=== PATIENT | male | born 1940 | race Caucasian/White ===

== ENCOUNTER 2016-04-18 14:53 | Outpatient (CLI) | payer MEDICARE, OTHER | END 2016-04-18 14:54 | disposition home or self-care (01) | DX: E11.9 Type 2 diabetes mellitus without complications (principal); I50.9 Heart failure, unspecified; I25.810 Atherosclerosis of coronary artery bypass graft(s) without angina pectoris ==

== ENCOUNTER 2016-06-06 08:20 | Outpatient (CLI) | payer MEDICARE, OTHER | END 2016-06-06 08:21 | disposition home or self-care (01) | DX: I12.9 Hypertensive chronic kidney disease with stage 1 through stage 4 chronic kidney disease, or unspecified chronic kidney disease (principal); E11.319 Type 2 diabetes mellitus with unspecified diabetic retinopathy without macular edema; E78.2 Mixed hyperlipidemia; N18.9 Chronic kidney disease, unspecified; I25.10 Atherosclerotic heart disease of native coronary artery without angina pectoris; M79.673 Pain in unspecified foot ==

== ENCOUNTER 2016-09-02 16:30 | Outpatient (CLI) | payer MEDICARE, OTHER ==
[2016-09-02 13:23] LABS: CALCIUM 8.5 mg/dL (8.5-10.3); CREATININE 1.3 mg/dL (0.6-1.2); POTASSIUM 4.5 mmol/L (3.5-5.0)
[2016-09-02 14:00] LABS: HEMOGLOBIN A1C 0.67 g/dL
== END 2016-09-02 16:31 | disposition home or self-care (01) ==
LOC: LAB.WCP 16:30
PROVIDERS: ATTEND Family Medicine
DX: E11.319 Type 2 diabetes mellitus with unspecified diabetic retinopathy without macular edema (principal)
CPT/HCPCS: 36415; 80048; 83036

== ENCOUNTER 2016-12-04 08:34 | Outpatient (CLI) | payer MEDICARE, OTHER ==
[2016-12-04 13:22] LABS: ALBUMIN/GLOBULIN RATIO 1.2 (1.0-2.2); BILIRUBIN,TOTAL 0.4 mg/dL (0.2-1.0); BUN - BLOOD UREA NITROGEN 22 mg/dL (6-20); CALCIUM 9.2 mg/dL (8.5-10.3); CARBON DIOXIDE - CO2 24 mmol/L (21-32); CHLORIDE 108 mmol/L (101-111); CHOL/HDL RATIO 4.4 (<5.0); CHOLESTEROL 158 mg/dL; CREATININE 1.5 mg/dL (0.6-1.2); GFR - MDRD 45 (>89); GLUCOSE 107 mg/dL (70-100); HDL CHOLESTEROL 36 mg/dL; LDL/HDL RATIO 2.1 (<3.6); POTASSIUM 4.6 mmol/L (3.5-5.0); SODIUM 140 mmol/L (135-145); TRIGLYCERIDES 223 mg/dL; VLDL CHOLESTEROL 45 mg/dL
[2016-12-04 13:40] LABS: HEMOGLOBIN A1C 0.67 g/dL
== END 2016-12-04 08:35 | disposition home or self-care (01) ==
LOC: LAB.WCP 08:34
PROVIDERS: ATTEND Family Medicine
DX: I12.9 Hypertensive chronic kidney disease with stage 1 through stage 4 chronic kidney disease, or unspecified chronic kidney disease (principal); N18.9 Chronic kidney disease, unspecified; I25.10 Atherosclerotic heart disease of native coronary artery without angina pectoris; E11.319 Type 2 diabetes mellitus with unspecified diabetic retinopathy without macular edema
CPT/HCPCS: 36415; 80053; 80061; 83036

== ENCOUNTER 2017-03-04 15:12 | Outpatient (CLI) | payer MEDICARE, OTHER ==
[2017-03-04 12:47] LABS: CALCIUM 8.9 mg/dL (8.5-10.3); CREATININE 1.2 mg/dL (0.6-1.2)
[2017-03-04 13:12] LABS: HEMOGLOBIN A1C 0.7 g/dL
== END 2017-03-04 15:13 | disposition home or self-care (01) ==
LOC: LAB.WCP 15:12
PROVIDERS: ATTEND Family Medicine
DX: I25.10 Atherosclerotic heart disease of native coronary artery without angina pectoris (principal); E11.319 Type 2 diabetes mellitus with unspecified diabetic retinopathy without macular edema; I10 Essential (primary) hypertension; E78.2 Mixed hyperlipidemia
CPT/HCPCS: 36415; 80048; 83036

== ENCOUNTER 2017-06-08 07:26 | Outpatient (CLI) | payer MEDICARE, OTHER ==
[2017-06-08 13:29] LABS: HB2 TOTAL 13.6 g/dL; HEMOGLOBIN A1C 0.82 g/dL; HEMOGLOBIN A1C % 7.7 % (4.6-6.2)
[2017-06-08 13:34] LABS: ALBUMIN 3.9 g/dL (3.2-5.5); ALBUMIN/GLOBULIN RATIO 1.3 (1.0-2.2); ALKALINE PHOSPHATASE 22 IU/L (42-121); ALT ALANINE AMINOTRANSFERASE 24 IU/L (10-60); AST ASPARTATE AMINOTRANSFERASE 29 IU/L (10-42); BILIRUBIN,TOTAL 0.4 mg/dL (0.2-1.0); BUN - BLOOD UREA NITROGEN 29 mg/dL (6-20); CALCIUM 8.6 mg/dL (8.5-10.3); CARBON DIOXIDE - CO2 25 mmol/L (21-32); CHLORIDE 107 mmol/L (101-111); CHOL/HDL RATIO 3.8 (<5.0); CHOLESTEROL 117 mg/dL; CREATININE 1.4 mg/dL (0.6-1.2); GFR - MDRD 49 (>89); GLUCOSE 143 mg/dL (70-100); HDL CHOLESTEROL 31 mg/dL; LDL CHOLESTEROL,CALCULATED 56 mg/dL; LDL/HDL RATIO 1.8 (<3.6); SODIUM 138 mmol/L (135-145); TOTAL PROTEIN 6.8 g/dL (6.7-8.2); VLDL CHOLESTEROL 30 mg/dL
== END 2017-06-08 07:27 | disposition home or self-care (01) ==
LOC: LAB.WCP 07:26
PROVIDERS: ATTEND Family Medicine
DX: N18.9 Chronic kidney disease, unspecified (principal); E11.319 Type 2 diabetes mellitus with unspecified diabetic retinopathy without macular edema; Z12.5 Encounter for screening for malignant neoplasm of prostate; I25.10 Atherosclerotic heart disease of native coronary artery without angina pectoris; I12.9 Hypertensive chronic kidney disease with stage 1 through stage 4 chronic kidney disease, or unspecified chronic kidney disease
CPT/HCPCS: 36415; 80053; 80061; 82043; 83036; G0103; 83721; 84153

== ENCOUNTER 2017-08-15 19:41 | Inpatient (IN) | payer MEDICARE, OTHER ==
[2017-08-15] MEDS ORDERED: SODIUM CHLORIDE 0.9% 1,000 ML IV ONE (19:57)
[2017-08-15] MEDS ORDERED: PANTOPRAZOLE 40 MG VIAL IVP STA (19:57)
--- NOTE | 2017-08-15 19:59 | ED Physician Documentation ---
PD HPI ABD PAIN - Stated complaint Stated Complaint: MALE /SWEATING - Chief complaint Chief Complaint: Cardiac - History obtained from History obtained from: Patient, Family () - History of Present Illness Timing - onset: Today (77-year-old gentleman with history of coronary disease status post remote three-vessel coronary bypass. He has no history of liver disease or ulcer disease. He had a single black bowel movement about a week ago. Over the last 2 nights he has felt full at night and had trouble sleeping because of it took a Tums. He noticed several episodes of dark and tarry stools with fatigue and dyspnea on exertion today. No hematemesis.) Review of Systems Ten Systems: 10 systems reviewed and negative Constitutional: reports: Fatigue. denies: Fever GI: reports: Nausea, Bloody / black stool. denies: Abdominal Pain, Vomiting, Constipation PD PAST MEDICAL HISTORY - Past Medical History Cardiovascular: Hypertension, Coronary artery disease Respiratory: None Endocrine/Autoimmune: Type 2 diabetes GI: None : None HEENT: None Psych: None Musculoskeletal: None - Present Medications Home Medications: Ambulatory Orders Medication Instructions Recorded Confirmed Aspirin [Aspir-Low] 1 tab ORAL DAILY 05/07/15 05/07/15 Finasteride 5 mg ORAL DAILY 05/07/15 05/07/15 Metoprolol Succinate [Toprol Xl] 50 mg PO BID 05/07/15 05/07/15 Tamsulosin [Flomax] 0.4 mg ORAL DAILY 05/07/15 05/07/15 glipiZIDE [Glucotrol] 0.25 mg ORAL BID 05/07/15 05/07/15 metFORMIN [Glucophage] 1 tab ORAL TID 05/07/15 05/07/15 Atorvastatin [Lipitor] 40 mg 08/15/17 Fenofibrate 160 mg PO 08/15/17 Gabapentin 300 mg PO 08/15/17 Losartan Potassium 100 mg PO 08/15/17 amLODIPine [Norvasc] 5 mg PO ONCE 08/15/17 08/15/17 - Allergies Allergies/Adverse Reactions: Allergies Allergy/AdvReac Type Severity Reaction Status Date / Time No Known Drug Allergies Allergy Verified 05/07/15 09:35 - Living Situation Living Situation: reports: With spouse/s.o. - Social History Smoking Status: Former smoker PD ED PE NORMAL - Vitals Vital signs reviewed: Yes - General General: Alert and oriented X 3, No acute distress - HEENT HEENT: PERRL, EOMI - Neck Neck: Supple, no meningeal sign, No bony TTP - Cardiac Cardiac: RRR, No murmur - Respiratory Respiratory: No respiratory distress, Clear bilaterally - Abdomen Abdomen: Normal bowel sounds, Soft, Non tender - Rectal Rectal: Other (Stool sample: melena and v guaiac positive, QC pass) - Back Back: No CVA TTP, No spinal TTP - Derm Derm: Normal color, Warm and dry - Extremities Extremities: No deformity, No edema, No calf tenderness / cord - Neuro Neuro: Alert and oriented X 3, Normal speech Results - Vitals Vitals: Vital Signs - 24 hr 08/15/17 08/15/17 19:45 20:21 Temperature 36.9 C Heart Rate 80 76 Respiratory 18 18 Rate Blood Pressure 132/36 H 126/43 L O2 Saturation 99 100 Oxygen O2 Source Room air - EKG (time done) 1954 Rate: Rate (enter#) (78) Rhythm: NSR [place]: Normal Intervals: Normal OK QRS: Normal Ischemia: Non specific changes (flat lateral t waves) Computer interpretation: Agree with computer - Labs Labs: Laboratory Tests 08/15/17 08/15/17 08/15/17 20:00 20:00 20:00 WBC 9.8 RBC 2.28 L Hgb 7.5 L Hct 23.3 L MCV 102.0 H MCH 32.9 H MCHC 32.3 RDW 14.1 Plt Count 287 MPV 8.3 Neut # 6.4 Lymph # 2.6 [place] # 0.8 Eos # 0.0 Baso # 0.0 Absolute Nucleated RBC 0.00 Nucleated RBC % 0.0 PT 13.8 H INR 1.2 Sodium 137 Potassium 5.1 H Chloride 107 Carbon Dioxide 18 L Anion Gap 12.0 BUN 86 H* Creatinine 1.8 H Estimated GFR (MDRD) 37 L Glucose 343 H Calcium 9.4 Total Bilirubin 0.6 AST 18 ALT 17 Alkaline Phosphatase 18 L Troponin I Total Protein 5.8 L Albumin 3.4 Globulin 2.4 Albumin/Globulin Ratio 1.4 Lipase 27 08/15/17 20:00 WBC RBC Hgb Hct MCV MCH MCHC RDW Plt Count MPV Neut # Lymph # [place] # Eos # Baso # Absolute Nucleated RBC Nucleated RBC % PT INR Sodium Potassium Chloride Carbon Dioxide Anion Gap BUN Creatinine Estimated GFR (MDRD) Glucose Calcium Total Bilirubin AST ALT Alkaline Phosphatase Troponin I < 0.04 Total Protein Albumin Globulin Albumin/Globulin Ratio Lipase PD MEDICAL DECISION MAKING - ED course ED course: 77-year-old gentleman presents with signs and symptoms of an upper GI bleed, his hemodynamics are reassuring although he does have a modestly low diastolic. IVs were placed and blood was readied. He was given IV Protonix. His labs do not suggest any level of cirrhosis but he does have a hemoglobin of 7.5, last year it was 12.9. His BUN is high consistent with hemolysis in the GI tract. I spoke with Dr. Bobby Acevedo, the on-call surgeon for potential upper endoscopy 8:30 PM and spoke with the hospitalist, Dr. Hopkins for admission at 8: 34 PM. Given the low diastolic, evidence of active bleeding, and history of coronary disease, it does seem reasonable to transfuse him despite his hemoglobin not yet being lower than 7. Departure - Departure Disposition: 66 [facility] DC/Xfer Clinical Impression: Upper gastrointestinal bleeding, Anemia due to acute blood loss Condition: Serious
[2017-08-15 20:04] LABS: BASOPHILS % (AUTO) 0.3 %; EOSINOPHILS % (AUTO) 0.1 %; HGB - HEMOGLOBIN 7.5 g/dL (14.0-18.0); LYMPHOCYTES # (AUTO) 2.6 10^3/uL (1.5-3.5); LYMPHOCYTES % (AUTO) 26.2 %; MEAN CORPUSCULAR HEMOGLOBIN 32.9 pg (27.0-31.0); MEAN CORPUSCULAR HGB CONC 32.3 g/dL (32.0-36.0); MEAN PLATELET VOLUME 8.3 fL (7.4-11.4); MONOCYTES # (AUTO) 0.8 10^3/uL (0.0-1.0); MONOCYTES % (AUTO) 8.1 %; NEUTROPHILS # (AUTO) 6.4 10^3/uL (1.5-6.6); NEUTROPHILS % (AUTO) 65.3 %; PLT - PLATELET COUNT 287 10^3/uL (130-450); RED BLOOD COUNT 2.28 10^6/uL (4.70-6.10); RED CELL DISTRIBUTION WIDTH 14.1 % (12.0-15.0); WHITE BLOOD COUNT 9.8 x10^3/uL (4.8-10.8)
[2017-08-15 20:11] LABS: INR 1.2 (0.8-1.2); PT - PROTHROMBIN TIME 13.8 secs (9.9-12.6)
[2017-08-15 20:19] LABS: ALBUMIN 3.4 g/dL (3.2-5.5); ALBUMIN/GLOBULIN RATIO 1.4 (1.0-2.2); BILIRUBIN,TOTAL 0.6 mg/dL (0.2-1.0); CALCIUM 9.4 mg/dL (8.5-10.3); CREATININE 1.8 mg/dL (0.6-1.2); TOTAL PROTEIN 5.8 g/dL (6.7-8.2)
[2017-08-15] MEDS ORDERED: INSULIN REGULAR HUMAN 100 UNIT/1 ML 10 ML MDV SUBQ STA (20:40)
[2017-08-15] MEDS ORDERED: ACETAMINOPHEN 325 MG TABLET PO PRN (20:59)
[2017-08-15] MEDS ORDERED: ZOLPIDEM 5 MG TABLET PO PRN (20:59)
[2017-08-15] MEDS ORDERED: SODIUM CHLORIDE FLUSH 0.9% 10 ML SYRINGE IVP PRN (20:59)
[2017-08-15] MEDS ORDERED: ONDANSETRON 4 MG/2 ML VIAL IVP PRN (20:59)
[2017-08-15] MEDS ORDERED: MORPHINE 2 MG/ML SYRINGE IVP PRN (20:59)
[2017-08-15] MEDS ORDERED: LACTATED RINGERS 1,000 ML IV SCH (21:00)
[2017-08-15] MEDS ORDERED: LORazepam 2 MG/ML VIAL IVP PRN (21:12)
[2017-08-15] MEDS: PANTOPRAZOLE 80 MG in SODIUM CHLORIDE 0.9% 100ML 100 ML IV SCH (22:10)
--- NOTE | 2017-08-15 22:23 | HISTORY & PHYSICAL EXAMINATION ---
DATE OF SERVICE: 08/15/2017 Physician: Mayra Hopkins MD CHIEF COMPLAINT: Melena. HISTORY OF PRESENT ILLNESS: Patient is a 77-year-old white male with multiple past medical problems who presented to [facility] ER complaining of five days history of feeling unwell and having black melenotic stools. He reported that at first he had black melena like stool about five days ago, that was one episode which resolved. Subsequently in the past few days, he felt full and had indigestion-like feeling, took some Tums, which somewhat helped. He could not sleep because he felt abdominal discomfort. At rest he felt reasonably well ; however, when he ambulated or tried to be active, he broke out in cold sweats and became short of breath. He denied chest pain. He did not report nausea or vomiting. Denied change in his weight. His stools were black, tarry, bloody and smelly. He does not have history of gastrointestinal bleed in the past. He underwent colonoscopy several times in the past with no pathology found. He reports having chronic diarrhea, which has been unchanged during the past several years. The patient also reports having pain of his right hip, right knee and right shoulder, also pain of his left ankle, likely has osteoarthritis and occasionally takes Tylenol. He takes Aleve or Advil three times a week, usually two tablets per day. He also takes aspirin for history of coronary artery disease. He reports drinking alcohol every day. He drinks 2 ounces of whiskey per day. Denies having withdrawal symptoms when he does not drink. Upon presentation to the ER, the patient was hemodynamically stable with heart rate of 76. However, it should be noted that he takes beta tyler. His blood pressure was 120/50. Laboratory showed BUN of 86, creatinine 1.8, notably creatinine baseline is around 1.3, potassium was 5.1, hemoglobin was 7.5, last hemoglobin in our system was 12.9, platelet count was normal. INR was normal. ER physician ordered 2 units of packed red blood cells. He discussed the case with the covering surgeon, Dr. Acevedo, who will see the patient and is planning endoscopy. REVIEW OF SYSTEMS: Please see pertinent positives listed above at history of present illness. The patient did not report additional complaints on the 12-point review. CODE STATUS: FULL CODE. FAMILY HISTORY: Positive for colitis in the mother. SOCIAL HISTORY: The patient is fully functional. He still drives. He does not smoke. He drinks 2 ounces of whiskey per day. PRIMARY CARE PHYSICIAN: Jameson Centeno MD. PAST MEDICAL HISTORY 1. Hypertension. 2. Dyslipidemia. 3. Insulin-dependent diabetes. 4. Coronary artery bypass graft in 2001, seen a automotive parts counter assistant last year and was found stable with coronary artery disease. 5. Chronic renal insufficiency. 6. Benign prostatic hypertrophy. 7. Osteoarthritis. OUTPATIENT MEDICATIONS Not yet reconciled. Per previous records, the patient was on: 1. Norvasc. 2. Glipizide. 3. Insulin. 4. Toprol. 5. Losartan. 6. Gabapentin. 7. Fenofibrate. 8. Lipitor. 9. Metformin. 10. Flomax. 11. Finasteride. 12. Aspirin. 13. He also took Aleve, Advil, and Tylenol p.r.n. ER workup reviewed per electronic medical record. PHYSICAL EXAMINATION VITAL SIGNS: Please see listed above at history of present illness. In addition, respiratory rate was 20, oxygen saturation 99% on room air, temperature maximum of 37.2 Celsius. GENERAL: The patient is a well-developed male who was not in distress. SKIN: Pallor. No jaundice. CARDIOVASCULAR: S1, S2. Regular rate and rhythm. I could not hear a pathologic murmur. RESPIRATORY: Clear to auscultation without wheezes or crackles. ABDOMEN: Distended abdomen, mostly tympanic on percussion. No shifting dullness. I could not palpate organomegaly. There was no tenderness, no guarding and no rebound. LYMPH: No lymphedema. MUSCULOSKELETAL: Thin extremities and larger abdomen. NEUROLOGIC: Alert, oriented, nonfocal. PSYCHIATRIC: Cooperative. Oral mucosa dry. ASSESSMENT AND PLAN/ACTIVE ISSUES/DIAGNOSES 1. Subacute/acute gastrointestinal bleed with melena, most likely upper gastrointestinal bleed. Risk factors include alcohol use, which could cause alcoholic gastritis, in addition nonsteroidal anti-inflammatory and aspirin use, which could be a risk factor for gastric ulcer. 2. Acute blood loss anemia. Hemoglobin dropping from the range of 12 to 7. 3. History of coronary artery disease. No symptoms of angina. 4. Renal failure, acute on chronic. 5. Abnormal BUN and creatinine ratio/blood in the gut. 6. Hyperkalemia, mild in the setting of renal failure, blood in the gut and gastrointestinal bleed. 7. Insulin-dependent diabetes, hyperglycemia on admission with blood glucose above 300. 8. History of alcohol use. No history of withdrawal. 9. Hemodynamically stable, although it should be noted that the heart rate is falsely normal as the patient takes beta tyler which masks tachycardia in the setting of gastrointestinal bleed. PLAN AND ORDERS 1. Patient is getting admitted to the intensive care unit, he is monitored on telemetry, received initially 1 unit packed red blood cell transfusion. We will recheck laboratories in the morning. We will continue beta tyler to avoid cardiac complication/cardiac ischemia and beta tyler withdrawal. 2. Surgeon, Dr. Acevedo, is planning endoscopy. 3. Protonix was started, we will continue Protonix drip. 4. Deep venous thrombosis prophylaxis with Venodyne boots. We will avoid heparin products in the setting of gastrointestinal bleed. 5. Insulin sliding scale for diabetes and hyperglycemia. 6. For history of alcohol use, I ordered small dose p.r.n. Ativan if it will be needed, then further plan regarding CIWA scoring could be reevaluated. 7. IV hydration. Time spent in the care of this patient was 60 minutes. ATTESTATION: I certify that the reasonable expectation for this patient is to stay hospitalized at least for 48 hours; therefore he is getting admitted as inpatient. I expect, however, that he gets discharged or transferred to another facility within 96 hours. TD: 08/15/2017 22:22 MARITZA
[2017-08-16] MEDS: INSULIN REGULAR HUMAN 100 UNIT/1 ML 10 ML MDV SUBQ SCH ×2 (00:22→06:08)
[2017-08-16] MEDS: SODIUM CHLORIDE FLUSH 0.9% 10 ML SYRINGE IVP SCH ×3 (00:23→14:19)
[2017-08-16 06:47] LABS: BASOPHILS % (AUTO) 0.6 %; EOSINOPHILS # (AUTO) 0.1 10^3/uL (0.0-0.7); EOSINOPHILS % (AUTO) 1.4 %; HGB - HEMOGLOBIN 7.6 g/dL (14.0-18.0); LYMPHOCYTES # (AUTO) 1.9 10^3/uL (1.5-3.5); LYMPHOCYTES % (AUTO) 25.1 %; MEAN CORPUSCULAR HEMOGLOBIN 31.6 pg (27.0-31.0); MEAN CORPUSCULAR HGB CONC 32.5 g/dL (32.0-36.0); MEAN CORPUSCULAR VOLUME 97.3 fL (80.0-94.0); MEAN PLATELET VOLUME 8.5 fL (7.4-11.4); MONOCYTES # (AUTO) 0.7 10^3/uL (0.0-1.0); MONOCYTES % (AUTO) 9.7 %; NEUTROPHILS # (AUTO) 4.7 10^3/uL (1.5-6.6); NEUTROPHILS % (AUTO) 63.2 %; PLT - PLATELET COUNT 218 10^3/uL (130-450); RED BLOOD COUNT 2.39 10^6/uL (4.70-6.10); RED CELL DISTRIBUTION WIDTH 16.2 % (12.0-15.0); WHITE BLOOD COUNT 7.4 x10^3/uL (4.8-10.8)
[2017-08-16] MEDS: PANTOPRAZOLE 80 MG in SODIUM CHLORIDE 0.9% 100ML 100 ML IV SCH (06:49)
[2017-08-16 06:57] LABS: CALCIUM 8.8 mg/dL (8.5-10.3); CREATININE 1.6 mg/dL (0.6-1.2)
[2017-08-16] MEDS ORDERED: METOPROLOL TARTRATE 50 MG TABLET PO SCH ×2 (09:00→21:00)
[2017-08-16] MEDS ORDERED: GABAPENTIN 300 MG CAPSULE PO SCH (09:00)
[2017-08-16] MEDS ORDERED: FUROSEMIDE 40 MG/4 ML VIAL IVP ONE (10:00)
[2017-08-16] MEDS ORDERED: LIDO GARGLE 30 ML BOTTLE TOP ONE (10:05)
[2017-08-16] MEDS ORDERED: LIDO GARGLE 30 ML BOTTLE ONE (10:11)
[2017-08-16] MEDS ORDERED: MIDAZOLAM 2 MG/2 ML VIAL IVP ONE (10:15)
[2017-08-16] MEDS ORDERED: PROPOFOL 200 MG/20 ML VIAL IVP ONE (10:15)
[2017-08-16] MEDS ORDERED: LACTATED RINGERS 1,000 ML IV ONE ×2 (10:22)
[2017-08-16] MEDS ORDERED: SODIUM CHLORIDE FLUSH 0.9% 10 ML SYRINGE ONE (10:52)
[2017-08-16] MEDS ORDERED: SUCRALFATE 1 GM/10 ML UDC PO SCH ×2 (11:00→16:00)
[2017-08-16] MEDS: FERROUS SULFATE 325 MG TABLET PO SCH ×2 (11:43→16:57)
[2017-08-16] MEDS: INSULIN ASPART 300 UNIT/3 ML PEN SUBQ SCH ×2 (11:44→17:06)
--- NOTE | 2017-08-16 12:10 | XRAY Report ---
EXAM: CHEST RADIOGRAPHY EXAM DATE: 08/16/2017 11:26 AM. CLINICAL HISTORY: SOB. COMPARISON: None. TECHNIQUE: 1 view. FINDINGS: Lungs/Pleura: No focal opacities evident. No pleural effusion. No pneumothorax. There may be a small calcified granuloma at the left lower lung. Mediastinum: Within exam limitations, the cardiomediastinal contour is normal. Other: Sternal wires. Broken uppermost sternal wire with mildly displaced fragment. IMPRESSION: No convincing acute cardiopulmonary abnormality. Other findings as noted above. [facility] Referring Provider Line: [phone] SITE ID: [id number]
--- NOTE | 2017-08-16 12:22 | PROVIDER PROGRESS NOTE ---
Assessment/Plan - Problem List (1) Anemia due to acute blood loss Assessment/Plan: Ordered to get 2 U PRBCs. Will recheck H/H after transfusion and in am. Iron po replacement already started. (2) Duodenal ulcer Assessment/Plan: EGD showed a non-bleeding duodenal ulcer, likely from ASA and NSAIDs vs EtOH (2- 4 shots/day) Will start PPI, Sucralfate. Will decrease ASA 325 mg to enteric coated ASA 81 mg. (3) IDDM (insulin dependent diabetes mellitus) Assessment/Plan: Will resume DM diet and ss Insulin coverage. Monitor glu at POC. (4) CAD (coronary artery disease) Assessment/Plan: Stable, restart meds. (5) HTN (hypertension) Assessment/Plan: restart po meds for BP control. Monitor VS. (6) CKD (chronic kidney disease) stage 3, GFR 30-59 ml/min Assessment/Plan: Monitor BUN/creat while inpatient. Will obtain a CXR to assure no fluid overload. (7) Hyperkalemia Assessment/Plan: Resolved. - Current Meds Current Meds: Current Medications Generic Name Dose Route Start Last Admin Trade Name Freq PRN Reason Stop Dose Admin Ferrous Sulfate 325 mg 08/16/17 11:00 08/16/17 11:43 Feosol PO 325 mg BIDWM MISA Administration Gabapentin 300 mg 08/16/17 09:00 08/16/17 11:43 Neurontin PO 300 mg DAILY MISA Administration Insulin Aspart 1 - 5 unit 08/16/17 12:00 08/16/17 11:44 Novolog SUBQ 1 unit 0800,1200,1700,2100 MISA Administration Protocol Sodium Chloride 10 ml 08/16/17 01:00 08/16/17 12:03 Normal Saline Flush 0.9% IVP Not Given 0100,0900,1700 MISA Zolpidem Tartrate 5 mg 08/15/17 20:59 08/16/17 00:44 Ambien PO 5 mg QPM PRN Administration Insomnia - Lab Result Fish Bone Diagrams: 08/16/17 06:18 08/16/17 06:18 - Additional Planning My Orders: My Active Orders 08/16/17 10:46 Blood Glucose Checks - Eating [RC] 0800,1200,1700,2100 Initiate Hypoglycemia Protocol [RC] .protocol 08/16/17 12:00 Insulin Aspart [NovoLOG] 1 - 5 unit SUBQ 0800,1200,1700,2100 08/16/17 13:00 Pantoprazole [Protonix] 40 mg PO QDAC 08/16/17 16:00 Sucralfate [Carafate] 1 gm PO 0700,1100,1600,2200 08/16/17 17:00 HCT - HEMATOCRIT [HEME] Routine HGB - HEMOGLOBIN [HEME] Routine 08/16/17 21:00 Metoprolol Tartrate [Lopressor] 50 mg PO BID 08/16/17 Lunch DIET [Full Liquid Diet] [DIET] 08/17/17 09:00 Fenofibrate [Tricor] 144 mg PO DAILY Losartan [Cozaar] 100 mg PO DAILY Tamsulosin [Flomax] 0.4 mg PO DAILY amLODIPine [Norvasc] 10 mg PO DAILY 08/17/17 21:00 Atorvastatin [Lipitor] 40 mg PO QPM Subjective - Subjective Patient Reports: Resting Comfortably Nursing Reports: No Complaints, Other (Is NPO before EGD this am) Objective Vital Signs: Vital Signs - 24 hr 08/15/17 08/15/17 08/15/17 21:12 21:21 21:31 Temperature 37.2 C 36.9 C Heart Rate 79 80 80 Heart Rate [ Monitoring electrodes] Respiratory 20 23 21 Rate Blood Pressure 130/51 L 142/39 H 129/42 L Blood Pressure [Left Brachial artery] O2 Saturation 99 08/15/17 08/15/17 08/15/17 21:41 22:00 22:15 Temperature 36.8 C 36.5 C Heart Rate 81 Heart Rate [ 88 76 Monitoring electrodes] Respiratory 20 22 22 Rate Blood Pressure 141/44 H Blood Pressure 150/93 H 137/48 H [Left Brachial artery] O2 Saturation 100 99 08/15/17 08/16/17 08/16/17 23:00 00:00 00:24 Temperature 36.3 C L Heart Rate 80 Heart Rate [ 76 80 Monitoring electrodes] Respiratory 23 21 20 Rate Blood Pressure 142/52 H Blood Pressure 122/51 L 107/24 L [Left Brachial artery] O2 Saturation 99 96 08/16/17 08/16/17 08/16/17 01:00 02:00 03:00 Temperature Heart Rate Heart Rate [ 76 81 80 Monitoring electrodes] Respiratory 17 13 13 Rate Blood Pressure Blood Pressure 125/48 L 110/42 L 134/55 H [Left Brachial artery] O2 Saturation 97 96 100 08/16/17 08/16/17 08/16/17 03:33 04:00 05:00 Temperature 36.4 C L Heart Rate Heart Rate [ 75 70 Monitoring electrodes] Respiratory 19 22 Rate Blood Pressure Blood Pressure 98/74 113/81 H [Left Brachial artery] O2 Saturation 98 97 08/16/17 08/16/17 08/16/17 06:00 07:00 08:00 Temperature 36.6 C Heart Rate 79 Heart Rate [ 70 77 79 Monitoring electrodes] Respiratory 23 20 14 Rate Blood Pressure 121/48 L Blood Pressure 133/59 H 121/48 L 121/48 L [Left Brachial artery] O2 Saturation 99 97 100 08/16/17 08/16/17 08/16/17 08:31 09:00 10:52 Temperature 36.2 C L 36.9 C Heart Rate 72 79 Heart Rate [ 71 Monitoring electrodes] Respiratory 20 18 15 Rate Blood Pressure 128/47 L 123/48 L Blood Pressure 131/53 H [Left Brachial artery] O2 Saturation 99 08/16/17 11:00 Temperature 36.9 C Heart Rate Heart Rate [ 86 Monitoring electrodes] Respiratory 20 Rate Blood Pressure Blood Pressure 119/54 L [Left Brachial artery] O2 Saturation 99 Oxygen O2 Source Room air I&O (Last 24 Hrs): Intake and Output Totals x24h 08/14/17 08/15/17 08/16/17 23:59 23:59 23:59 Intake Total 1386.5 Output Total 200 1125 Balance -200 261.5 General: Alert, Oriented x3 HEENT: Mucous membr. moist/pink, Other (Appears pale) Neck: Supple, No JVD Neuro: Non Focal Cardiovascular: No murmurs Respiratory: No respiratory distress, Breath sounds nml Abdomen: Soft, No tenderness Extremities: No edema - Results Results: Laboratory Results WBC 7.4 x10^3/uL (4.8-10.8) 08/16/17 06:18 RBC 2.39 10^6/uL (4.70-6.10) L 08/16/17 06:18 Hgb 7.6 g/dL (14.0-18.0) L 08/16/17 06:18 Hct 23.3 % (42.0-52.0) L 08/16/17 06:18 MCV 97.3 fL (80.0-94.0) H 08/16/17 06:18 MCH 31.6 pg (27.0-31.0) H 08/16/17 06:18 MCHC 32.5 g/dL (32.0-36.0) 08/16/17 06:18 RDW 16.2 % (12.0-15.0) H 08/16/17 06:18 Plt Count 218 10^3/uL (130-450) 08/16/17 06:18 MPV 8.5 fL (7.4-11.4) 08/16/17 06:18 Neut # 4.7 10^3/uL (1.5-6.6) 08/16/17 06:18 Lymph # 1.9 10^3/uL (1.5-3.5) 08/16/17 06:18 [place] # 0.7 10^3/uL (0.0-1.0) 08/16/17 06:18 Eos # 0.1 10^3/uL (0.0-0.7) 08/16/17 06:18 Baso # 0.0 10^3/uL (0.0-0.1) 08/16/17 06:18 Absolute Nucleated RBC 0.00 x10^3/uL 08/16/17 06:18 Nucleated RBC % 0.0 /100WBC 08/16/17 06:18 PT 13.8 secs (9.9-12.6) H 08/15/17 20:00 INR 1.2 (0.8-1.2) 08/15/17 20:00 Sodium 141 mmol/L (135-145) 08/16/17 06:18 Potassium 4.0 mmol/L (3.5-5.0) 08/16/17 06:18 Chloride 114 mmol/L (101-111) H 08/16/17 06:18 Carbon Dioxide 21 mmol/L (21-32) 08/16/17 06:18 Anion Gap 6.0 (6-13) 08/16/17 06:18 BUN 72 mg/dL (6-20) H 08/16/17 06:18 Creatinine 1.6 mg/dL (0.6-1.2) H 08/16/17 06:18 Estimated GFR (MDRD) 42 (>89) L 08/16/17 06:18 Glucose 147 mg/dL (70-100) H 08/16/17 06:18 POC Whole Bld Glucose 146 mg/dL (70 - 100) H 08/16/17 11:26 Calcium 8.8 mg/dL (8.5-10.3) 08/16/17 06:18 Total Bilirubin 0.6 mg/dL (0.2-1.0) 08/15/17 20:00 AST 18 IU/L (10-42) 08/15/17 20:00 ALT 17 IU/L (10-60) 08/15/17 20:00 Alkaline Phosphatase 18 IU/L (42-121) L 08/15/17 20:00 Troponin I < 0.04 ng/mL (<0.49) 08/15/17 20:00 Total Protein 5.8 g/dL (6.7-8.2) L 08/15/17 20:00 Albumin 3.4 g/dL (3.2-5.5) 08/15/17 20:00 Globulin 2.4 g/dL (2.1-4.2) 08/15/17 20:00 Albumin/Globulin Ratio 1.4 (1.0-2.2) 08/15/17 20:00 Lipase 27 U/L (22-51) 08/15/17 20:00 Blood Type A POSITIVE 08/15/17 20:00 Antibody Screen NEGATIVE 08/15/17 20:00 Crossmatch IS Only See Detail 08/15/17 20:00 - Procedures Procedures: Procedures INSPECTION OF LOWER INTESTINAL TRACT, ENDO (05/07/15) ABX Reporting Has patient been on IV antibiotics over the past 48 hours?: No
[2017-08-16] MEDS ORDERED: PANTOPRAZOLE 40 MG TABLET PO SCH (13:00)
[2017-08-16] MEDS ORDERED: amLODIPine 5 MG TABLET PO SCH (16:14)
--- NOTE | 2017-08-16 18:45 | Discharge Plan ---
Discharge Plan Disposition: Home, Self Care Condition: Stable Prescriptions: Pantoprazole [Protonix] 40 mg PO DAILY #30 tablet Sucralfate [Carafate] 1 gm PO BID #600 ml Diet: Diabetic Activity Restrictions: Activity as Tolerated Shower Restrictions: No Driving Restrictions: No Instruction Topics: Gastric Duodenal Ulcer Ch Additional Instructions or Follow Up instructions: Resume all your pre-hospital medications EXCEPT STOP THE ALEVE AND ADVIL. DO NOT TAKE THE ASPIRIN TIL OKd TO RESUME IT by your doctor. Take the new prescriptions for your stomach for a month and check with your doctor if you need refills. SEE YOUR DOCTOR IN 1-2 WEEKS IN FOLLOW-UP OF THIS HOSPITALIZATION AND FOR BLOOD TESTS. No Smoking: If you smoke, Please STOP! Call for help. Follow-up with: Nehemias Centeno MD [Primary Care Provider] -
[2017-08-16 19:19] VITALS: BP 127/53
[2017-08-17] MEDS ORDERED: amLODIPine 5 MG TABLET PO SCH (09:00)
[2017-08-17] MEDS ORDERED: LOSARTAN 50 MG TABLET PO SCH (09:00)
[2017-08-17] MEDS ORDERED: TAMSULOSIN 0.4 MG CAPSULE PO SCH (09:00)
[2017-08-17] MEDS ORDERED: FENOFIBRATE 48 MG TABLET PO SCH (09:00)
[2017-08-17] MEDS ORDERED: ATORVASTATIN 40 MG TABLET PO SCH (21:00)
--- NOTE | 2017-08-18 11:29 | DISCHARGE SUMMARY ---
Physician: Jeaneth Cooper MD DATE OF ADMISSION: 08/15/2017 DATE OF DISCHARGE: 08/16/2017 HISTORY OF PRESENT ILLNESS: This is a 77-year-old white male with a history of hypertension, insulin-dependent diabetes, coronary bypass grafting, chronic renal insufficiency, BPH and osteoarthritis. The patient presented with history of feeling "unwell" and noticing 5 days of black melanotic stools. He tried taking Tums for some indigestion-like abdominal discomfort and then came to the emergency room because he felt diaphoretic, short of breath and weak. The patient was noted to have hemoglobin of 7.5, his baseline is approximately 12. Therefore, he was admitted for evaluation of anemia and likely upper gastrointestinal bleed. DISCHARGE DIAGNOSES: 1. Duodenal ulcer. The patient was kept n.p.o., had a consultation by general surgery and then underwent an EGD that showed a nonbleeding duodenal ulcer. The patient was started on PPIs and Sucralfate and advised to stop taking his frequent dosing of Aleve and Advil. The aspirin was also advised to be stopped at least until seen by his PCP and okayed for resumption of the aspirin. The patient was able to tolerate clear liquids and then solid food without any abdominal pain and was discharged home. 2. Anemia due to acute blood loss. The patient received 2 units of packed red blood cells and hemoglobin recheck was 11.0. He also had evaluation for desaturation before discharge, because of his shortness of breath. He did not desaturate below 97% with activity and was deemed stable for discharge. 3. Insulin-dependent diabetes mellitus. The patient was on a diabetic diet after n.p.o. status was reversed and on insulin coverage. He was discharged with unchanged diabetic management. 4. Coronary artery disease history. There were no complaints of angina, his medications were unchanged. 5. Hypertension. The patient was on his medications for blood pressure control , which are stable. 6. Chronic kidney disease. Patient had creatinine of 1.8 on admission, it was 1.6 on the day of discharge. 7. Hyperkalemia. On admission, potassium was 5.1, at discharge, it was 4.0. LABS AND IMAGING: Reviewed and summarized above. ALLERGIES: NONE. MEDICATIONS AT THE TIME OF DISCHARGE: 1. Amlodipine 10 mg daily. 2. Lipitor 40 mg every evening. 3. Fenofibrate 160 mg daily. 4. Finasteride 5 mg daily. 5. Gabapentin 300 mg daily. 6. Insulin Lantus as per his home protocol. 7. Losartan 100 mg daily. 8. Metformin 500 mg in the a.m., 1000 mg in the p.m. 8. Metoprolol tartrate 50 mg b.i.d. 9. Protonix 40 mg daily, new medication to take for at least a month. 10. Sucralfate 1 gram p.o. b.i.d., new medication to take for at least a month. 11. Flomax 0.4 mg daily. PHYSICAL EXAMINATION AT DISCHARGE: VITAL SIGNS: Stable. Blood pressure 127/53, heart rate 83, sinus rhythm, afebrile. Room air saturation 96%. HEENT: Unremarkable. No icterus. Oral mucosa moist. NECK: Without JVD or carotid bruits. CHEST: Clear. HEART: Sounds normal. ABDOMEN: Soft, nontender, normal bowel sounds. EXTREMITIES: No edema. NEUROLOGIC: Intact. FOLLOWUP: Recommended to see his PCP and/or freezer worker in 1-2 weeks for further management of his duodenal ulcer that had caused bleeding and significant anemia. The PCP or gstroenterologist should OK the resumption of daily aspirin. CODE STATUS: FULL CODE. Time required to complete this entire discharge including dictation, review of course and medications ordered: 60 minutes. TD: 08/17/2017 17:46 MTDD
--- NOTE | 2017-09-02 12:16 | CONSULTATION NOTE ---
DATE OF SERVICE: 08/16/2017 Physician: Bobby Acevedo MD REFERRING PROVIDER: Jonathan Rosado M.D. REASON FOR REFERRAL: Melena. HISTORY OF PRESENT ILLNESS: The patient is a 77-year-old male who presents with black stools. Initially, he had melena approximately 5 days ago. In the last 2 days, he has had an upset stomach and started to have further black stools. Because of this, he came to the emergency room to be evaluated. The patient's hemoglobin was 7.5 on admission and 7.6 overnight. He has remained hemodynamically stable since admission. The patient denies any history of ulcers, but as stated has been having upset stomach and used Tums. He does take nonsteroidals for his arthritis. He has had colonoscopies in the past, which have been normal and has had chronic diarrhea. PAST MEDICAL HISTORY: Hypertension, hyperlipidemia, diabetes, coronary artery disease status post bypass, chronic renal insufficiency, BPH and arthritis. MEDICATIONS 1. Norvasc. 2. Glipizide. 3. Insulin. 4. Toprol. 5. Losartan. 6. Gabapentin. 7. Fenofibrate. 8. Lipitor. 9. Metformin. 10. Flomax. 11. Finasteride. 12. Aspirin. 13. Nonsteroidals. FAMILY HISTORY: Mother had colitis. SOCIAL HISTORY: The patient has 2 drinks a day. Denies any smoking or drug use. The patient is . REVIEW OF SYSTEMS: Gastrointestinal: Upset stomach and melena. Musculoskeletal: Arthritis. A 12-point review of systems was obtained with pertinent positives discussed and all others being negative. PHYSICAL EXAMINATION VITAL SIGNS: Temperature is 37.2, heart rate of 86, blood pressure 123/48. GENERAL: The patient is lying in bed. He is cooperative and pleasant, appears to answer questions fully, in no distress at the current time. EYES: Nonicteric. NECK: No lymphadenopathy. HEART: Regular. LUNGS: Clear. BACK: Nontender. ABDOMEN: Soft, nontender. EXTREMITIES: No edema or cyanosis. NEUROLOGIC: The patient appears to be neurologically intact without any deficit. PSYCHOLOGICAL: The patient is coherent, cooperative, appears to answer questions fully. DIAGNOSTIC DATA: Hemoglobin of 7.6, creatinine of 1.6. Blood sugars from 293 down to 144. ASSESSMENT: Melena with anemia. This most likely is an upper gastrointestinal bleeding. He is on nonsteroidals and he most likely has gastritis versus peptic ulcer disease. I have recommended he undergo upper endoscopy with possible control of bleeding or biopsy. The risks and possible complication of the procedure have been explained to him. He accepts the risks and would like to proceed with the procedure. 2. Diabetes with him having elevated blood sugars. The hospitalist will be giving medications to control this. 3. Chronic renal insufficiency. 4. Hypertension, controlled with medication. PLAN 1. N.p.o. 2. Esophagogastroduodenoscopy with possible biopsy or control of bleeding. TD: 09/02/2017 10:53
== END 2017-08-16 19:56 | disposition home or self-care (01) | DRG 378 ==
LOC: ED 19:41 → ICU 20:59 → MS2 08-16 15:27
PROVIDERS: ADMIT Internal Medicine; ATTEND Internal Medicine
PROC: 30233N1 Transfusion of Nonautologous Red Blood Cells into Peripheral Vein, Percutaneous Approach (ICD-10-PCS; 2017-08-15)
PROC: 0DB68ZX Excision of Stomach, Via Natural or Artificial Opening Endoscopic, Diagnostic (ICD-10-PCS; 2017-08-16)
PROC: 0DB58ZX Excision of Esophagus, Via Natural or Artificial Opening Endoscopic, Diagnostic (ICD-10-PCS; 2017-08-16)
PROC: 0DB98ZX Excision of Duodenum, Via Natural or Artificial Opening Endoscopic, Diagnostic (ICD-10-PCS; principal; 2017-08-16 10:00)
DX: K92.1 Melena (principal); K26.4 Chronic or unspecified duodenal ulcer with hemorrhage; D62 Acute posthemorrhagic anemia; E11.9 Type 2 diabetes mellitus without complications; I10 Essential (primary) hypertension; N17.9 Acute kidney failure, unspecified; T39.315A Adverse effect of propionic acid derivatives, initial encounter; Z79.84 Long term (current) use of oral hypoglycemic drugs; Z87.891 Personal history of nicotine dependence; K52.9 Noninfective gastroenteritis and colitis, unspecified; I12.9 Hypertensive chronic kidney disease with stage 1 through stage 4 chronic kidney disease, or unspecified chronic kidney disease; E11.22 Type 2 diabetes mellitus with diabetic chronic kidney disease; N18.9 Chronic kidney disease, unspecified; E11.65 Type 2 diabetes mellitus with hyperglycemia; N40.0 Benign prostatic hyperplasia without lower urinary tract symptoms; M19.90 Unspecified osteoarthritis, unspecified site; E78.5 Hyperlipidemia, unspecified; I25.10 Atherosclerotic heart disease of native coronary artery without angina pectoris; E87.5 Hyperkalemia; Z79.4 Long term (current) use of insulin; Z95.1 Presence of aortocoronary bypass graft; Z79.899 Other long term (current) drug therapy; Z79.82 Long term (current) use of aspirin
CPT/HCPCS: 36415; 36430; 71045; 80048; 80053; 83690; 84484; 85014; 85018; 85025; 85610; 86850; 86900; 86901; 86920; 87081; 87150; 87338; 88305; 93005; 94761; 96361; 96374; 99284

== ENCOUNTER 2017-08-17 08:00 | Outpatient (CLI) | payer MEDICARE, OTHER | END 2017-08-17 23:59 | LOC: LAB 08:00 | PROVIDERS: ATTEND Surgery | DX: Z53.9 Procedure and treatment not carried out, unspecified reason (principal) | CPT/HCPCS: 87081 ==

== ENCOUNTER 2017-09-07 08:00 | Outpatient (CLI) | payer MEDICARE, OTHER ==
[2017-09-07 12:47] LABS: CALCIUM 8.3 mg/dL (8.5-10.3); CREATININE 1.3 mg/dL (0.6-1.2); HB2 TOTAL 11.8 g/dL; HEMOGLOBIN A1C 0.54 g/dL; HEMOGLOBIN A1C % 6.3 % (4.6-6.2)
[2017-09-07 12:56] LABS: BASOPHILS % (AUTO) 0.6 %; EOSINOPHILS # (AUTO) 0.1 10^3/uL (0.0-0.7); EOSINOPHILS % (AUTO) 2.7 %; HGB - HEMOGLOBIN 10.9 g/dL (14.0-18.0); LYMPHOCYTES # (AUTO) 0.9 10^3/uL (1.5-3.5); LYMPHOCYTES % (AUTO) 18.4 %; MEAN CORPUSCULAR HEMOGLOBIN 31.8 pg (27.0-31.0); MEAN CORPUSCULAR VOLUME 96.4 fL (80.0-94.0); MEAN PLATELET VOLUME 8.6 fL (7.4-11.4); MONOCYTES # (AUTO) 0.5 10^3/uL (0.0-1.0); MONOCYTES % (AUTO) 10.1 %; NEUTROPHILS # (AUTO) 3.3 10^3/uL (1.5-6.6); NEUTROPHILS % (AUTO) 68.2 %; PLT - PLATELET COUNT 224 10^3/uL (130-450); RED BLOOD COUNT 3.43 10^6/uL (4.70-6.10); RED CELL DISTRIBUTION WIDTH 18.3 % (12.0-15.0); WHITE BLOOD COUNT 4.9 x10^3/uL (4.8-10.8)
== END 2017-09-07 08:01 | disposition home or self-care (01) ==
LOC: LAB.WCP 08:00
PROVIDERS: ATTEND Family Medicine
DX: D64.9 Anemia, unspecified (principal); E11.319 Type 2 diabetes mellitus with unspecified diabetic retinopathy without macular edema; K26.9 Duodenal ulcer, unspecified as acute or chronic, without hemorrhage or perforation; N18.9 Chronic kidney disease, unspecified
CPT/HCPCS: 36415; 80048; 83036; 85025

== ENCOUNTER 2017-09-25 07:24 | Outpatient (CLI) | payer MEDICARE, OTHER ==
--- NOTE | 2017-09-26 08:44 | Ultrasound Report ---
Procedure Date: 09/25/2017 Accession Number: [id number] / [id number] Procedure: US - Ankle Brachial Index CPT Code: FULL RESULT: EXAM: BILATERAL ABIs EXAM DATE: 09/25/2017 08:12 AM. CLINICAL HISTORY: PVD WITH CLAUDICATION. COMPARISON: None. TECHNIQUE: Doppler ultrasound and pressure cuff use to assess arterial pressures at the arms and ankles. FINDINGS: Peak brachial pressure noted on the left side at 153 mmHg. Right: Posterior tibial artery pressure: 147 mmHg. ALONDRA = 0.96 Biphasic waveforms noted at the FITNESS DIRECTOR and DPA. Left: Posterior tibial artery pressure: 144 mmHg. ALONDRA = 0.94 FITNESS DIRECTOR has biphasic waveform. DPA has monophasic. IMPRESSION: Within normal range bilateral ABIs. [facility]
== END 2017-09-25 07:25 | disposition home or self-care (01) ==
LOC: DI 07:24
PROVIDERS: ATTEND Family Medicine
DX: I73.9 Peripheral vascular disease, unspecified (principal); M51.36 Other intervertebral disc degeneration, lumbar region; M47.896 Other spondylosis, lumbar region; M47.898 Other spondylosis, sacral and sacrococcygeal region; M43.16 Spondylolisthesis, lumbar region
CPT/HCPCS: 72110; 93922

== ENCOUNTER 2017-09-25 07:26 | Outpatient (CLI) | payer MEDICARE, OTHER ==
--- NOTE | 2017-09-28 08:49 | XRAY Report ---
Procedure Date: 09/25/2017 Accession Number: [id number] / [id number] Procedure: XR - Lumbar Spine Complete CPT Code: FULL RESULT: EXAM: Lumbar Spine Complete DATE: 09/25/2017 8:46 AM CLINICAL HISTORY: PVD with claudication, low back pain COMPARISON: MRI lumbar spine 02/03/2013 TECHNIQUE: 4 views. FINDINGS: Alignment: Grade 1 retrolisthesis of L2 with respect to L3 and L4 with respect to L5. Bones: Five zxg-axd-shomrbd lumbar vertebral bodies are present. No fractures or bone lesions. Disks: Equivocal narrowing L2-3 and L4-5. Facets: Multilevel scattered degenerative changes. Sacroiliac Joints: Mild degenerative change Soft Tissues: Vascular calcification IMPRESSION: Degenerative change lumbar spine similar to minimally progressed compared with 02/03/2013. [facility]
== END 2017-09-25 07:27 | disposition home or self-care (01) ==
LOC: DI 07:26
PROVIDERS: ATTEND Family Medicine
DX: M51.36 Other intervertebral disc degeneration, lumbar region (principal); M47.896 Other spondylosis, lumbar region; M47.898 Other spondylosis, sacral and sacrococcygeal region; M43.16 Spondylolisthesis, lumbar region
CPT/HCPCS: 72110

== ENCOUNTER 2017-10-29 14:17 | Outpatient (CLI) | payer MEDICARE, OTHER ==
--- NOTE | 2017-10-30 21:59 | MRI Report ---
Procedure Date: 10/29/2017 Accession Number: [id number] / [id number] Procedure: MRI - Lumbar Spine W/O CPT Code: FULL RESULT: EXAM: MRI LUMBAR SPINE WITHOUT CONTRAST. EXAM DATE: 10/29/2017 02:55 PM. CLINICAL HISTORY: Low back pain at multiple sites. COMPARISON: 02/03/2013. TECHNIQUE: Multiplanar, multisequence T1-weighted and fluid-sensitive sequences of the lumbar spine from T12 to S1 without contrast. Other: None. FINDINGS: Alignment: No significant change in alignment. Minimal L2 on L3 retrolisthesis. Minimal asymmetric leftward convex lumbar curve. Spinal Canal: The conus terminates at T12. Unremarkable appearance of the conus medullaris. Bone Marrow: Five rru-jeb-gngntla lumbar vertebral bodies are assumed. No focal marrow edema or vertebral body height loss. Disk Levels/Facets: Dorsal thecal sac impingement on the left at T10-T11 from prominent asymmetric posterior hypertrophic degenerative changes, likely including ligamentum flavum thickening. This is only seen sagittally. Central canal is mildly stenotic but the cord does not appear displaced and the foramina are patent. T12-L1: Unremarkable. L1-L2: Unremarkable. L2-L3: Stable degenerative disk disease and facet arthropathy. Circumferential disk bulge. Mild marginal spurring. Patent central canal. Asymmetric left larger than right intraforaminal and extraforaminal disk protrusion with osteophyte. Foraminal stenosis appears mild on the right and may be moderate on the left. L3-L4: Similar findings of moderate degenerative disk disease and moderate to marked facet arthropathy with ligamentum flavum thickening. Circumferential disk bulge. Additional intraforaminal and extraforaminal broad-based bilateral protrusions. Right intraforaminal annular fissure stable appearing moderate stenosis of the central canal foraminal stenosis appears mild on the left and moderate on the right, similar to prior. L4-L5: Mild degenerative disk disease and left facet arthropathy. Moderately prominent facet arthropathy on the right. Stable appearing mild broad-based bulge. Patent central canal. Stable appearing mild left and eufv-hu-jdcdswcq right foraminal stenosis. L5-S1: Stable degenerative changes. Patent central canal. Right greater than left facet arthropathy. No disk extrusion. Stable foraminal stenosis right greater than left. Musculature: Mild diffuse fatty atrophy. No acute edema. Other: None. IMPRESSION: 1. Dorsal thecal sac indentation on the left at T10-T11 by posterior element hypertrophic degenerative changes. 2. Multilevel lumbar degenerative changes are present as detailed above, no clear evidence for progression of degenerative changes or stenosis, most notable at L2-L3 through L4-L5. Comment: The following findings are so common in adults without low back pain that while we report their presence, they must be interpreted with caution and in the context of the clinical situation. (Reference Marlonk et al, Spine 2001) Prevalence of findings in patients without low back pain: Disk degeneration (any evidence): 92% Disk desiccation/T2 signal loss: 83% Disk height loss: 56% Disk bulge: 64% Disk protrusion: 32% Annular tear/high intensity zone: 38% [facility]
== END 2017-10-29 14:18 | disposition home or self-care (01) ==
LOC: DI 14:17
PROVIDERS: ATTEND Physical Medicine & Rehabilitation
DX: M54.5 Low back pain (principal); M51.36 Other intervertebral disc degeneration, lumbar region
CPT/HCPCS: 72148

== ENCOUNTER 2018-04-01 09:00 | Outpatient (CLI) | payer MEDICARE, OTHER ==
[2018-04-01 13:57] LABS: BASOPHILS % (AUTO) 0.4 %; EOSINOPHILS # (AUTO) 0.1 10^3/uL (0.0-0.7); EOSINOPHILS % (AUTO) 2.7 %; HGB - HEMOGLOBIN 11.7 g/dL (14.0-18.0); MEAN CORPUSCULAR HGB CONC 33.5 g/dL (32.0-36.0); MEAN CORPUSCULAR VOLUME 101.4 fL (80.0-94.0); MEAN PLATELET VOLUME 8.7 fL (7.4-11.4); MONOCYTES # (AUTO) 0.6 10^3/uL (0.0-1.0); MONOCYTES % (AUTO) 11.7 %; NEUTROPHILS # (AUTO) 3.2 10^3/uL (1.5-6.6); NEUTROPHILS % (AUTO) 65.2 %; PLT - PLATELET COUNT 231 10^3/uL (130-450); RED BLOOD COUNT 3.44 10^6/uL (4.70-6.10); RED CELL DISTRIBUTION WIDTH 13.6 % (12.0-15.0); WHITE BLOOD COUNT 4.9 x10^3/uL (4.8-10.8)
[2018-04-01 14:11] LABS: HEMOGLOBIN A1C 0.6 g/dL; HEMOGLOBIN A1C % 6.7 % (4.6-6.2)
[2018-04-01 14:30] LABS: ALBUMIN 3.9 g/dL (3.2-5.5); ALBUMIN/GLOBULIN RATIO 1.3 (1.0-2.2); ALKALINE PHOSPHATASE 23 IU/L (42-121); ALT ALANINE AMINOTRANSFERASE 22 IU/L (10-60); AST ASPARTATE AMINOTRANSFERASE 30 IU/L (10-42); BILIRUBIN,TOTAL 0.2 mg/dL (0.2-1.0); BUN - BLOOD UREA NITROGEN 27 mg/dL (6-20); CALCIUM 9.1 mg/dL (8.5-10.3); CARBON DIOXIDE - CO2 26 mmol/L (21-32); CHLORIDE 108 mmol/L (101-111); CHOL/HDL RATIO 4.4 (<5.0); CHOLESTEROL 145 mg/dL; CREATININE 1.4 mg/dL (0.6-1.2); GFR - MDRD 49 (>89); GLUCOSE 100 mg/dL (70-100); HDL CHOLESTEROL 33 mg/dL; LDL CHOLESTEROL,CALCULATED 78 mg/dL; LDL/HDL RATIO 2.4 (<3.6); SODIUM 143 mmol/L (135-145); TOTAL PROTEIN 6.9 g/dL (6.7-8.2); VLDL CHOLESTEROL 34 mg/dL
== END 2018-04-01 23:59 | disposition home or self-care (01) ==
LOC: LAB.WCP 09:00
PROVIDERS: ATTEND Family Medicine
DX: N18.9 Chronic kidney disease, unspecified (principal); E11.319 Type 2 diabetes mellitus with unspecified diabetic retinopathy without macular edema; I10 Essential (primary) hypertension; E78.2 Mixed hyperlipidemia
CPT/HCPCS: 36415; 80053; 80061; 83036; 83721; 85025

== ENCOUNTER 2018-05-25 09:07 | Outpatient (CLI) | payer MEDICARE, OTHER ==
--- NOTE | 2018-05-25 13:29 | MRI Report ---
Reason: PRIMARY OSTEOARTHRITIS,RIGHT SHOULDER,SHOULD PAIN Procedure Date: 05/25/2018 Accession Number: [id number] / [id number] Procedure: MRI - Shoulder RT W/O CPT Code: FULL RESULT: EXAM: RIGHT SHOULDER MRI WITHOUT CONTRAST EXAM DATE: 05/25/2018 10:01 AM. CLINICAL HISTORY: Right shoulder pain. Osteoarthritis. COMPARISON: SHOULDER 3 VIEW RT 03/26/2018 12:12 PM. TECHNIQUE: Multiplanar, multisequence T1-weighted and fluid-sensitive sequences of the shoulder without contrast. Other: None. FINDINGS: Acromioclavicular Region: The acromion is type II. Small effusion and mild osteoarthritis at the acromioclavicular joint. The coracoacromial and coracoclavicular ligaments are intact. No subacromial/subdeltoid bursal fluid. Glenohumeral Region: The humeral head is subluxed superiorly relative to the glenoid. No effusion or loose bodies. The articular cartilage is unremarkable. The glenohumeral ligaments and joint capsule are unremarkable. Bone Marrow: No fracture, marrow edema or bone lesions. Labrum: The labrum is unremarkable on this nonarthrographic study. Musculature/Rotator Cuff: There is an approximately 2.4 cm AP by 1.4 cm medial to lateral, extensive moderate grade partial thickness articular surface tear at the distal aspects of the supraspinatus and infraspinatus tendons. Teres minor and subscapularis tendons are unremarkable. No edema or fatty atrophy. Biceps Tendon: The long head of the biceps tendon and biceps tanika are intact. Other: The subcutaneous tissues are unremarkable. IMPRESSION: 1. Moderate grade partial thickness articular surface tear at the distal aspects of the supraspinatus and infraspinatus tendons. 2. Mild osteoarthritis at the acromioclavicular joint. [facility] MUSCULOSKELETAL RADIOLOGY SECTION
== END 2018-05-25 09:08 | disposition home or self-care (01) ==
LOC: DI 09:07
PROVIDERS: ATTEND Orthopaedic Surgery
DX: M19.011 Primary osteoarthritis, right shoulder (principal); M75.101 Unspecified rotator cuff tear or rupture of right shoulder, not specified as traumatic

== ENCOUNTER 2018-07-05 08:16 | Outpatient (CLI) | payer MEDICARE, OTHER ==
[2018-07-05 13:08] LABS: BASOPHILS # (AUTO) 0.1 10^3/uL (0.0-0.1); BASOPHILS % (AUTO) 1.1 %; EOSINOPHILS # (AUTO) 0.1 10^3/uL (0.0-0.7); HGB - HEMOGLOBIN 12.1 g/dL (14.0-18.0); LYMPHOCYTES # (AUTO) 1.3 10^3/uL (1.5-3.5); LYMPHOCYTES % (AUTO) 25.7 %; MEAN CORPUSCULAR HEMOGLOBIN 32.6 pg (27.0-31.0); MEAN CORPUSCULAR HGB CONC 33.3 g/dL (32.0-36.0); MEAN CORPUSCULAR VOLUME 97.9 fL (80.0-94.0); MEAN PLATELET VOLUME 8.7 fL (7.4-11.4); MONOCYTES # (AUTO) 0.4 10^3/uL (0.0-1.0); MONOCYTES % (AUTO) 8.2 %; NEUTROPHILS # (AUTO) 3.2 10^3/uL (1.5-6.6); PLT - PLATELET COUNT 208 10^3/uL (130-450); RED CELL DISTRIBUTION WIDTH 13.8 % (12.0-15.0); WHITE BLOOD COUNT 5.1 x10^3/uL (4.8-10.8)
[2018-07-05 13:23] LABS: ALBUMIN 3.8 g/dL (3.2-5.5); ALBUMIN/GLOBULIN RATIO 1.4 (1.0-2.2); ALKALINE PHOSPHATASE 26 IU/L (42-121); ALT ALANINE AMINOTRANSFERASE 25 IU/L (10-60); AST ASPARTATE AMINOTRANSFERASE 28 IU/L (10-42); BILIRUBIN,TOTAL 0.7 mg/dL (0.2-1.0); BUN - BLOOD UREA NITROGEN 20 mg/dL (6-20); CALCIUM 8.8 mg/dL (8.5-10.3); CARBON DIOXIDE - CO2 27 mmol/L (21-32); CHLORIDE 104 mmol/L (101-111); CHOL/HDL RATIO 3.9 (<5.0); CHOLESTEROL 138 mg/dL; CREATININE 1.4 mg/dL (0.6-1.2); GFR - MDRD 49 (>89); GLUCOSE 115 mg/dL (70-100); HDL CHOLESTEROL 35 mg/dL; LDL CHOLESTEROL,CALCULATED 64 mg/dL; LDL/HDL RATIO 1.8 (<3.6); SODIUM 138 mmol/L (135-145); TOTAL PROTEIN 6.5 g/dL (6.7-8.2); VLDL CHOLESTEROL 39 mg/dL
[2018-07-05 13:25] LABS: HB2 TOTAL 12.6 g/dL; HEMOGLOBIN A1C 0.78 g/dL; HEMOGLOBIN A1C % 7.8 % (4.6-6.2)
== END 2018-07-05 23:59 | disposition home or self-care (01) ==
LOC: LAB.WCP 08:16
PROVIDERS: ATTEND Family Medicine
DX: N18.9 Chronic kidney disease, unspecified (principal); E11.319 Type 2 diabetes mellitus with unspecified diabetic retinopathy without macular edema; E78.2 Mixed hyperlipidemia; D64.9 Anemia, unspecified
CPT/HCPCS: 36415; 80053; 80061; 83036; 83721; 85025

== ENCOUNTER 2018-07-10 10:51 | Emergency (ER) | payer MEDICARE, OTHER ==
[2018-07-10 10:58] VITALS: BP 140/46
--- NOTE | 2018-07-10 12:21 | ED Physician Documentation ---
PD HPI HEENT - Stated complaint Stated Complaint: R EAR PX - Chief complaint Chief Complaint: Heent - History obtained from History obtained from: Patient, Family - History of Present Illness Timing - onset: How many days ago (3) Timing - duration: Days (3) Timing - details: Gradual onset Pain level max: 6 Pain level now: 5 Location: Right ear Improves: Nothing Worsens: Temperatures (cold air) Associated symptoms: No: Fever, Congestion, Rhinorrhea, Trismus, Unable to swallow, Swollen nodes, Facial swelling, Headache, Cough Similar symptoms before: Has not had sx before Recently seen: Not recently seen - Additional information Additional information: 77-year-old male with right ear pain for the past 3 days. No fevers. No drainage. No rhinorrhea. Mild congestion. No sore throat. Review of Systems Constitutional: denies: Fever, Chills Respiratory: denies: Cough GI: denies: Vomiting Skin: denies: Rash Musculoskeletal: denies: Neck pain, Back pain Neurologic: denies: Headache PD PAST MEDICAL HISTORY - Past Medical History Cardiovascular: Hypertension, Coronary artery disease Respiratory: None Endocrine/Autoimmune: Type 2 diabetes GI: None : None HEENT: None Psych: None Musculoskeletal: None - Past Surgical History Past Surgical History: Yes Ortho: Arthroscopic surgery - Present Medications Home Medications: Ambulatory Orders Medication Instructions Recorded Confirmed Finasteride 5 mg ORAL DAILY 05/07/15 08/16/17 Tamsulosin [Flomax] 0.4 mg ORAL DAILY 05/07/15 08/16/17 metFORMIN [Glucophage] 500 mg PO QDBREAKFAST 05/07/15 08/16/17 Atorvastatin [Lipitor] 40 mg PO QPM 08/15/17 08/16/17 Fenofibrate 160 mg PO DAILY 08/15/17 08/16/17 Gabapentin 300 mg PO DAILY 08/15/17 08/16/17 Losartan Potassium 100 mg PO DAILY 08/15/17 08/16/17 amLODIPine [Norvasc] 10 mg PO DAILY 08/15/17 08/16/17 Insulin Glargine [Lantus Solostar] units SUBQ QPM 08/16/17 Metformin HCl 1,000 mg PO QDDINNER 08/16/17 08/16/17 Metoprolol Tartrate [Lopressor] 50 mg PO BID 08/16/17 08/16/17 Pantoprazole [Protonix] 40 mg PO DAILY #30 tablet 08/16/17 Sucralfate [Carafate] 1 gm PO BID #600 ml 08/16/17 Neomycin/Polymyx/Hc Otic Drops 4 drops OT TID 10 Days #1 bottle 07/10/18 [Cortisporin Ear Susp] - Allergies Allergies/Adverse Reactions: Allergies Allergy/AdvReac Type Severity Reaction Status Date / Time No Known Drug Allergies Allergy Verified 07/10/18 10:57 - Social History Does the pt smoke?: No Smoking Status: Never smoker Does the pt drink ETOH?: No Does the pt have substance abuse?: No - Immunizations Immunizations are current?: Yes PD ED PE NORMAL - Vitals Vital signs reviewed: Yes - General General: Alert and oriented X 3, No acute distress - HEENT HEENT: Moist mucous membranes, Other (Right ear - Mild erythema and white patches on the right canal. Normal tympanic membrane. No mastoid tenderness. Normal pinna. Normal left ear.) - Neck Neck: Supple, no meningeal sign - Derm Derm: Warm and dry - Neuro Neuro: Alert and oriented X 3 Results - Vitals Vitals: Vital Signs - 24 hr 07/10/18 10:56 Temperature 36.5 C Heart Rate 59 L Respiratory 18 Rate Blood Pressure 140/46 H O2 Saturation 98 Oxygen O2 Source Room air PD MEDICAL DECISION MAKING - ED course Complexity details: considered differential, d/w patient, d/w family ED course: 77-year-old male with a right acute otitis externa. Will place on Cortisporin otic and follow-up with his doctor. Does not wear hearing aids. Patient counseled regarding signs and symptoms for which I believe and urgent re- evaluation would be necessary. Patient with good understanding of and agreement to plan and is comfortable going home at this time This document was made in part using voice recognition software. While efforts are made to proofread this document, sound alike and grammatical errors may occur. Departure - Departure Disposition: 01 Home, Self Care Clinical Impression: Right otitis externa Qualifiers: Otitis externa type: unspecified type Chronicity: acute Qualified Code(s): H60.501 - Unspecified acute noninfective otitis externa, right ear Condition: Good Instructions: ED Otitis Externa Follow-Up: Silvia Huerta MD [Primary Care Provider] - Within 1 week Prescriptions: Neomycin/Polymyx/Hc Otic Drops [Cortisporin Ear Susp] 4 drops OT TID 10 Days #1 bottle Comments: Your prescriptions were sent to [facility] in [place]. Return if you worsen. Use the drops as prescribed. This should improve over the next few days.
== END 2018-07-10 12:29 | disposition home or self-care (01) ==
LOC: ED 10:51
DX: H60.501 Unspecified acute noninfective otitis externa, right ear (principal); I10 Essential (primary) hypertension; I25.10 Atherosclerotic heart disease of native coronary artery without angina pectoris; E11.9 Type 2 diabetes mellitus without complications; Z79.4 Long term (current) use of insulin
CPT/HCPCS: 99283

== ENCOUNTER 2018-07-12 12:46 | Emergency (ER) | payer MEDICARE, OTHER ==
[2018-07-12 13:05] VITALS: BP 126/44
--- NOTE | 2018-07-12 14:14 | ED Physician Documentation ---
PD HPI HEENT - Stated complaint Stated Complaint: R EAR PX - Chief complaint Chief Complaint: Heent - History obtained from History obtained from: Patient - History of Present Illness Timing - onset: Other (This is a long-standing diabetic who is had 6 days of intermittently severe right ear pain without decreased hearing or URI symptoms. He was seen here a few days ago and diagnosed with otitis externa and put on Cortisporin drops and he has worsened.) Review of Systems Constitutional: denies: Fever, Chills Ears: denies: Loss of hearing, Drainage/discharge Nose: denies: Rhinorrhea / runny nose PD PAST MEDICAL HISTORY - Past Medical History Cardiovascular: Hypertension, Coronary artery disease Respiratory: None Endocrine/Autoimmune: Type 2 diabetes GI: None : None HEENT: None Psych: None Musculoskeletal: None - Past Surgical History Past Surgical History: Yes Ortho: Arthroscopic surgery - Present Medications Home Medications: Ambulatory Orders Medication Instructions Recorded Confirmed Finasteride 5 mg ORAL DAILY 05/07/15 08/16/17 Tamsulosin [Flomax] 0.4 mg ORAL DAILY 05/07/15 08/16/17 metFORMIN [Glucophage] 500 mg PO QDBREAKFAST 05/07/15 08/16/17 Atorvastatin [Lipitor] 40 mg PO QPM 08/15/17 08/16/17 Fenofibrate 160 mg PO DAILY 08/15/17 08/16/17 Gabapentin 300 mg PO DAILY 08/15/17 08/16/17 Losartan Potassium 100 mg PO DAILY 08/15/17 08/16/17 amLODIPine [Norvasc] 10 mg PO DAILY 08/15/17 08/16/17 Insulin Glargine [Lantus Solostar] units SUBQ QPM 08/16/17 Metformin HCl 1,000 mg PO QDDINNER 08/16/17 08/16/17 Metoprolol Tartrate [Lopressor] 50 mg PO BID 08/16/17 08/16/17 Pantoprazole [Protonix] 40 mg PO DAILY #30 tablet 08/16/17 Sucralfate [Carafate] 1 gm PO BID #600 ml 08/16/17 Neomycin/Polymyx/Hc Otic Drops 4 drops OT TID 10 Days #1 bottle 07/10/18 [Cortisporin Ear Susp] Ciprofloxacin HCl [Cipro] 500 mg PO BID #20 tablet 07/12/18 Oxycodone HCl/Acetaminophen 1 - 2 each PO Q6H PRN #14 tablet 07/12/18 [Percocet 5-325 mg Tablet] - Allergies Allergies/Adverse Reactions: Allergies Allergy/AdvReac Type Severity Reaction Status Date / Time No Known Drug Allergies Allergy Verified 07/12/18 13:05 - Social History Does the pt smoke?: No Smoking Status: Never smoker Does the pt drink ETOH?: No Does the pt have substance abuse?: No - Immunizations Immunizations are current?: Yes PD ED PE NORMAL - Vitals Vital signs reviewed: Yes - General General: Alert and oriented X 3, No acute distress - HEENT HEENT: Other (He has otitis externa of the entire canal but not very swollen. No mastoid tenderness. There is some tenderness of the ear with manipulation though.) - Neck Neck: Supple, no meningeal sign, No bony TTP - Neuro Neuro: Alert and oriented X 3, Normal speech Results - Vitals Vitals: Vital Signs - 24 hr 07/12/18 13:03 Temperature 35.9 C L Heart Rate 58 L Respiratory 14 Rate Blood Pressure 126/44 L O2 Saturation 95 Oxygen O2 Source Room air PD MEDICAL DECISION MAKING - ED course ED course: This is a 77-year-old gentleman on appropriate treatment for otitis externa, given that he is diabetic we will add oral antibiotics as well. Departure - Departure Disposition: 01 Home, Self Care Clinical Impression: IDDM (insulin dependent diabetes mellitus) Right otitis externa Qualifiers: Otitis externa type: malignant Chronicity: acute Qualified Code(s): H60.21 - Malignant otitis externa, right ear Condition: Good Record reviewed to determine appropriate education?: Yes Instructions: ED Otitis Externa Prescriptions: Ciprofloxacin HCl [Cipro] 500 mg PO BID #20 tablet Oxycodone HCl/Acetaminophen [Percocet 5-325 mg Tablet] 1 - 2 each PO Q6H PRN #14 tablet PRN Reason: pain Comments: Return or follow-up with your physician in 3-4 days if not better, anytime if worse.
== END 2018-07-12 14:20 | disposition home or self-care (01) ==
LOC: ED 12:46
DX: E11.9 Type 2 diabetes mellitus without complications (principal); H60.92 Unspecified otitis externa, left ear; I10 Essential (primary) hypertension; Z79.84 Long term (current) use of oral hypoglycemic drugs
CPT/HCPCS: 99283

== ENCOUNTER 2018-09-28 07:24 | Outpatient (CLI) | payer MEDICARE, OTHER ==
[2018-09-28 12:40] LABS: BASOPHILS % (AUTO) 0.4 %; EOSINOPHILS # (AUTO) 0.2 10^3/uL (0.0-0.7); LYMPHOCYTES # (AUTO) 1.4 10^3/uL (1.5-3.5); LYMPHOCYTES % (AUTO) 25.5 %; MEAN CORPUSCULAR HEMOGLOBIN 32.6 pg (27.0-31.0); MEAN CORPUSCULAR HGB CONC 30.8 g/dL (32.0-36.0); MEAN CORPUSCULAR VOLUME 105.9 fL (80.0-94.0); MEAN PLATELET VOLUME 10.9 fL (7.4-11.4); MONOCYTES # (AUTO) 0.6 10^3/uL (0.0-1.0); MONOCYTES % (AUTO) 11.1 %; NEUTROPHILS # (AUTO) 3.4 10^3/uL (1.5-6.6); NEUTROPHILS % (AUTO) 59.6 %; PLT - PLATELET COUNT 234 10^3/uL (130-450); RED BLOOD COUNT 3.37 10^6/uL (4.70-6.10); RED CELL DISTRIBUTION WIDTH 14.2 % (12.0-15.0); WHITE BLOOD COUNT 5.6 x10^3/uL (4.8-10.8)
[2018-09-28 12:56] LABS: ALBUMIN/GLOBULIN RATIO 1.4 (1.0-2.2); ALKALINE PHOSPHATASE 26 IU/L (42-121); ALT ALANINE AMINOTRANSFERASE 22 IU/L (10-60); AST ASPARTATE AMINOTRANSFERASE 28 IU/L (10-42); BILIRUBIN,TOTAL 0.7 mg/dL (0.2-1.0); BUN - BLOOD UREA NITROGEN 19 mg/dL (6-20); CALCIUM 8.8 mg/dL (8.5-10.3); CARBON DIOXIDE - CO2 25 mmol/L (21-32); CHLORIDE 107 mmol/L (101-111); CHOL/HDL RATIO 4.4 (<5.0); CHOLESTEROL 132 mg/dL; CREATININE 1.4 mg/dL (0.6-1.2); GFR - MDRD 49 (>89); GLUCOSE 91 mg/dL (70-100); HDL CHOLESTEROL 30 mg/dL; LDL CHOLESTEROL,CALCULATED 67 mg/dL; LDL/HDL RATIO 2.2 (<3.6); SODIUM 141 mmol/L (135-145); TOTAL PROTEIN 6.9 g/dL (6.7-8.2); VLDL CHOLESTEROL 35 mg/dL
[2018-09-28 13:09] LABS: HB2 TOTAL 11.5 g/dL; HEMOGLOBIN A1C 0.56 g/dL; HEMOGLOBIN A1C % 6.6 % (4.6-6.2)
== END 2018-09-28 07:25 | disposition home or self-care (01) ==
LOC: LAB.WCP 07:24
PROVIDERS: ATTEND Family Medicine
DX: E11.22 Type 2 diabetes mellitus with diabetic chronic kidney disease (principal); N18.9 Chronic kidney disease, unspecified; E78.2 Mixed hyperlipidemia; E11.319 Type 2 diabetes mellitus with unspecified diabetic retinopathy without macular edema
CPT/HCPCS: 36415; 80053; 80061; 83036; 83721; 85025

== ENCOUNTER 2018-12-20 08:00 | Outpatient (CLI) | payer MEDICARE, OTHER ==
[2018-12-20 12:12] LABS: BASOPHILS % (AUTO) 0.3 %; EOSINOPHILS # (AUTO) 0.2 10^3/uL (0.0-0.7); EOSINOPHILS % (AUTO) 3.7 %; HGB - HEMOGLOBIN 11.4 g/dL (14.0-18.0); LYMPHOCYTES # (AUTO) 1.4 10^3/uL (1.5-3.5); LYMPHOCYTES % (AUTO) 24.4 %; MEAN CORPUSCULAR HGB CONC 30.7 g/dL (32.0-36.0); MEAN CORPUSCULAR VOLUME 104.2 fL (80.0-94.0); MEAN PLATELET VOLUME 11.1 fL (7.4-11.4); MONOCYTES # (AUTO) 0.6 10^3/uL (0.0-1.0); MONOCYTES % (AUTO) 10.8 %; NEUTROPHILS # (AUTO) 3.5 10^3/uL (1.5-6.6); NEUTROPHILS % (AUTO) 60.3 %; PLT - PLATELET COUNT 194 10^3/uL (130-450); RED BLOOD COUNT 3.56 10^6/uL (4.70-6.10); RED CELL DISTRIBUTION WIDTH 13.3 % (12.0-15.0); WHITE BLOOD COUNT 5.7 x10^3/uL (4.8-10.8)
[2018-12-20 12:33] LABS: ALBUMIN 3.8 g/dL (3.2-5.5); ALBUMIN/GLOBULIN RATIO 1.4 (1.0-2.2); ALKALINE PHOSPHATASE 24 IU/L (42-121); ALT ALANINE AMINOTRANSFERASE 21 IU/L (10-60); AST ASPARTATE AMINOTRANSFERASE 25 IU/L (10-42); BILIRUBIN,TOTAL 0.6 mg/dL (0.2-1.0); BUN - BLOOD UREA NITROGEN 21 mg/dL (6-20); CALCIUM 8.8 mg/dL (8.5-10.3); CARBON DIOXIDE - CO2 25 mmol/L (21-32); CHLORIDE 108 mmol/L (101-111); CHOL/HDL RATIO 4.2 (<5.0); CHOLESTEROL 130 mg/dL; CREATININE 1.4 mg/dL (0.6-1.2); GFR - MDRD 49 (>89); GLUCOSE 99 mg/dL (70-100); HDL CHOLESTEROL 31 mg/dL; LDL CHOLESTEROL,CALCULATED 64 mg/dL; LDL/HDL RATIO 2.1 (<3.6); SODIUM 142 mmol/L (135-145); TOTAL PROTEIN 6.6 g/dL (6.7-8.2); VLDL CHOLESTEROL 35 mg/dL
[2018-12-20 13:35] LABS: HB2 TOTAL 11.7 g/dL; HEMOGLOBIN A1C 0.65 g/dL; HEMOGLOBIN A1C % 7.2 % (4.6-6.2)
== END 2018-12-20 23:59 | disposition home or self-care (01) ==
LOC: LAB.WCP 08:00
PROVIDERS: ATTEND Family Medicine
DX: I10 Essential (primary) hypertension (principal); D64.9 Anemia, unspecified; E11.319 Type 2 diabetes mellitus with unspecified diabetic retinopathy without macular edema; E78.2 Mixed hyperlipidemia
CPT/HCPCS: 36415; 80053; 80061; 83036; 83721; 85025

== ENCOUNTER 2019-12-13 07:12 | Outpatient (CLI) | payer MEDICARE, OTHER ==
[2019-12-13 12:46] LABS: BASOPHILS % (AUTO) 0.1 %; EOSINOPHILS % (AUTO) 0.5 %; HGB - HEMOGLOBIN 11.6 g/dL (14.0-18.0); LYMPHOCYTES # (AUTO) 1.4 10^3/uL (1.5-3.5); LYMPHOCYTES % (AUTO) 16.3 %; MEAN CORPUSCULAR HEMOGLOBIN 32.9 pg (27.0-31.0); MEAN CORPUSCULAR VOLUME 105.9 fL (80.0-94.0); MEAN PLATELET VOLUME 10.8 fL (7.4-11.4); MONOCYTES # (AUTO) 0.7 10^3/uL (0.0-1.0); MONOCYTES % (AUTO) 8.3 %; NEUTROPHILS # (AUTO) 6.2 10^3/uL (1.5-6.6); NEUTROPHILS % (AUTO) 73.8 %; PLT - PLATELET COUNT 238 10^3/uL (130-450); RED BLOOD COUNT 3.53 10^6/uL (4.70-6.10); RED CELL DISTRIBUTION WIDTH 13.6 % (12.0-15.0); WHITE BLOOD COUNT 8.3 x10^3/uL (4.8-10.8)
[2019-12-13 13:12] LABS: ALBUMIN 3.6 g/dL (3.2-5.5); ALBUMIN/GLOBULIN RATIO 1.5 (1.0-2.2); ALKALINE PHOSPHATASE 32 IU/L (42-121); ALT ALANINE AMINOTRANSFERASE 30 IU/L (10-60); AST ASPARTATE AMINOTRANSFERASE 23 IU/L (10-42); BILIRUBIN,TOTAL 0.6 mg/dL (0.2-1.0); BUN - BLOOD UREA NITROGEN 33 mg/dL (6-20); CALCIUM 8.7 mg/dL (8.5-10.3); CARBON DIOXIDE - CO2 29 mmol/L (21-32); CHLORIDE 106 mmol/L (101-111); CHOL/HDL RATIO 2.2 (<5.0); CHOLESTEROL 121 mg/dL; CREATININE 1.6 mg/dL (0.6-1.2); GLUCOSE 178 mg/dL (70-100); HDL CHOLESTEROL 54 mg/dL; LDL CHOLESTEROL,CALCULATED 49 mg/dL; LDL/HDL RATIO 0.9 (<3.6); SODIUM 140 mmol/L (135-145); VLDL CHOLESTEROL 18 mg/dL
[2019-12-13 13:26] LABS: HEMOGLOBIN A1c% 8.5 % (4.27-6.07)
[2019-12-13 13:30] LABS: FERRITIN 105.1 ng/mL (23.9-336.2)
[2019-12-13 13:39] LABS: CREATININE,URINE 83.5 mg/dL; MICROALBUM/CREATININE RATIO,UR 77.8 ug/mg (<30.0); MICROALBUMIN,URINE 6.5 mg/dL (0-300.0)
[2019-12-13 13:47] LABS: % IRON SATURATION 32 % (20-50); IRON 118 ug/dL (45-182); TOTAL IRON BINDING CAPACITY 370 ug/dL (250-450); TRANSFERRIN 264 mg/dL (180-329)
== END 2019-12-13 23:59 | disposition home or self-care (01) ==
LOC: LAB.WCP 07:12
PROVIDERS: ATTEND Nurse Practitioner
DX: E11.319 Type 2 diabetes mellitus with unspecified diabetic retinopathy without macular edema (principal); D64.9 Anemia, unspecified; N18.9 Chronic kidney disease, unspecified
CPT/HCPCS: 36415; 80053; 80061; 82043; 82570; 82607; 82728; 83036; 83540; 83721; 84466; 85025

== ENCOUNTER 2020-07-02 07:00 | Outpatient (CLI) | payer MEDICARE, OTHER ==
[2020-07-02 12:25] LABS: BASOPHILS % (AUTO) 0.4 %; EOSINOPHILS # (AUTO) 0.2 10^3/uL (0.0-0.7); EOSINOPHILS % (AUTO) 3.2 %; HCT - HEMATOCRIT 36.8 % (42.0-52.0); HGB - HEMOGLOBIN 11.4 g/dL (14.0-18.0); LYMPHOCYTES # (AUTO) 0.9 10^3/uL (1.5-3.5); LYMPHOCYTES % (AUTO) 17.5 %; MEAN CORPUSCULAR HEMOGLOBIN 32.9 pg (27.0-31.0); MEAN CORPUSCULAR VOLUME 106.4 fL (80.0-94.0); MONOCYTES # (AUTO) 0.5 10^3/uL (0.0-1.0); MONOCYTES % (AUTO) 9.8 %; NEUTROPHILS # (AUTO) 3.6 10^3/uL (1.5-6.6); NEUTROPHILS % (AUTO) 68.5 %; PLT - PLATELET COUNT 188 10^3/uL (130-450); RED BLOOD COUNT 3.46 10^6/uL (4.70-6.10); RED CELL DISTRIBUTION WIDTH 13.7 % (12.0-15.0); WHITE BLOOD COUNT 5.3 x10^3/uL (4.8-10.8)
[2020-07-02 12:36] LABS: ESTIMATED AVERAGE GLUCOSE 143 mg/dL (70-100); HEMOGLOBIN A1c% 6.6 % (4.27-6.07)
[2020-07-02 12:42] LABS: ALBUMIN/GLOBULIN RATIO 1.4 (1.0-2.2); ALKALINE PHOSPHATASE 29 IU/L (42-121); ALT ALANINE AMINOTRANSFERASE 19 IU/L (10-60); AST ASPARTATE AMINOTRANSFERASE 27 IU/L (10-42); BILIRUBIN,TOTAL 0.7 mg/dL (0.2-1.0); BUN - BLOOD UREA NITROGEN 18 mg/dL (6-20); CALCIUM 9.3 mg/dL (8.5-10.3); CARBON DIOXIDE - CO2 24 mmol/L (21-32); CHLORIDE 108 mmol/L (101-111); CHOL/HDL RATIO 4.9 (<5.0); CHOLESTEROL 127 mg/dL; CREATININE 1.3 mg/dL (0.6-1.2); GFR - MDRD 53 (>89); GLUCOSE 103 mg/dL (70-100); HDL CHOLESTEROL 26 mg/dL; LDL CHOLESTEROL,CALCULATED 59 mg/dL; LDL/HDL RATIO 2.3 (<3.6); POTASSIUM 3.6 mmol/L (3.5-5.0); SODIUM 142 mmol/L (135-145); TOTAL PROTEIN 6.8 g/dL (6.7-8.2); TRIGLYCERIDES 212 mg/dL; VLDL CHOLESTEROL 42 mg/dL
== END 2020-07-02 23:59 | disposition home or self-care (01) ==
LOC: LAB.WCP 07:00
PROVIDERS: ATTEND Family Medicine
DX: E11.319 Type 2 diabetes mellitus with unspecified diabetic retinopathy without macular edema (principal); Z12.5 Encounter for screening for malignant neoplasm of prostate
CPT/HCPCS: 36415; 80053; 80061; 83036; 85025; G0103; 82043; 82570; 83721; 84153

== ENCOUNTER 2020-07-03 07:00 | Outpatient (CLI) | payer MEDICARE, OTHER ==
[2020-07-03 18:03] LABS: CREATININE,URINE 100.4 mg/dL; MICROALBUM/CREATININE RATIO,UR 93.6 ug/mg (<30.0); MICROALBUMIN,URINE 9.4 mg/dL (0-300.0)
== END 2020-07-03 23:59 | disposition home or self-care (01) ==
LOC: LAB.WCP 07:00
PROVIDERS: ATTEND Family Medicine
DX: E11.319 Type 2 diabetes mellitus with unspecified diabetic retinopathy without macular edema (principal)
CPT/HCPCS: 82043; 82570

== ENCOUNTER 2021-02-06 08:00 | Outpatient (CLI) | payer MEDICARE, OTHER ==
[2021-02-06 12:15] LABS: BASOPHILS % (AUTO) 0.6 %; EOSINOPHILS % (AUTO) 17.3 %; HGB - HEMOGLOBIN 11.9 g/dL (14.0-18.0); LYMPHOCYTES % (AUTO) 9.9 %; MEAN CORPUSCULAR HEMOGLOBIN 32.6 pg (27.0-31.0); MEAN CORPUSCULAR HGB CONC 30.5 g/dL (32.0-36.0); MEAN CORPUSCULAR VOLUME 106.8 fL (80.0-94.0); MEAN PLATELET VOLUME 10.7 fL (7.4-11.4); MONOCYTES % (AUTO) 10.3 %; NEUTROPHILS % (AUTO) 61.5 %; PLT - PLATELET COUNT 328 10^3/uL (130-450); RED BLOOD COUNT 3.65 10^6/uL (4.70-6.10); RED CELL DISTRIBUTION WIDTH 13.4 % (12.0-15.0); WHITE BLOOD COUNT 8.2 x10^3/uL (4.8-10.8)
[2021-02-06 12:23] LABS: ABNORMAL LYMPHS % (MANUAL) 0 %
[2021-02-06 13:00] LABS: FERRITIN 173.6 ng/mL (23.9-336.2)
[2021-02-06 13:04] LABS: % IRON SATURATION 13 % (20-50); ALBUMIN 3.5 g/dL (3.2-5.5); ALKALINE PHOSPHATASE 35 IU/L (42-121); ALT ALANINE AMINOTRANSFERASE 17 IU/L (10-60); AST ASPARTATE AMINOTRANSFERASE 23 IU/L (10-42); BILIRUBIN,TOTAL 0.7 mg/dL (0.2-1.0); BUN - BLOOD UREA NITROGEN 27 mg/dL (6-20); CALCIUM 8.9 mg/dL (8.5-10.3); CARBON DIOXIDE - CO2 26 mmol/L (21-32); CHLORIDE 105 mmol/L (101-111); CHOL/HDL RATIO 5.9 (<5.0); CHOLESTEROL 89 mg/dL; CREATININE 1.6 mg/dL (0.6-1.2); GFR - MDRD 42 (>89); GLUCOSE 110 mg/dL (70-100); HDL CHOLESTEROL 15 mg/dL; IRON 46 ug/dL (45-182); LDL CHOLESTEROL,CALCULATED 30 mg/dL; POTASSIUM 4.1 mmol/L (3.5-5.0); SODIUM 140 mmol/L (135-145); TOTAL IRON BINDING CAPACITY 360 ug/dL (250-450); TRANSFERRIN 257 mg/dL (180-329); TRIGLYCERIDES 218 mg/dL; VLDL CHOLESTEROL 44 mg/dL
[2021-02-06 13:11] LABS: BAND NEUTROPHILS % (MANUAL) 1 %; BASOPHILS # (MANUAL) 0.2 10^3/uL (0-0.1); BASOPHILS % (MANUAL) 2 %; EOSINOPHILS # (MANUAL) 1.7 10^3/uL (0-0.7); LYMPHOCYTES # (MANUAL) 0.7 10^3/uL (1.5-3.5); LYMPHOCYTES % (MANUAL) 7 %; MONOCYTES # (MANUAL) 0.8 10^3/uL (0.0-1.0); NEUTROPHILS # (MANUAL) 4.8 10^3/uL (1.5-6.6); REACTIVE LYMPHS % (MANUAL) 1 %
[2021-02-06 13:12] LABS: PLATELET ESTIMATE, MANUAL NORMAL (130-450,000) (NORMAL); PLATELET MORPHOLOGY NORMAL APPEARANCE (NORMAL); WBC MORPHOLOGY (MULTIPLE) 1+ TOXIC GRANULATION (NORMAL)
[2021-02-06 13:13] LABS: DIFFERENTIAL COMMENT MANUAL DIFFERENTIAL; MICROALBUM/CREATININE RATIO,UR 35.5 ug/mg (<30.0); MICROALBUMIN,URINE 2.7 mg/dL (0-300.0)
[2021-02-06 14:04] LABS: ESTIMATED AVERAGE GLUCOSE 146 mg/dL (70-100); HEMOGLOBIN A1c% 6.7 % (4.27-6.07)
== END 2021-02-06 23:59 | disposition home or self-care (01) ==
LOC: LAB.WCP 08:00
PROVIDERS: ATTEND Family Medicine
DX: I10 Essential (primary) hypertension (principal); E78.2 Mixed hyperlipidemia; E11.319 Type 2 diabetes mellitus with unspecified diabetic retinopathy without macular edema; D64.9 Anemia, unspecified
CPT/HCPCS: 36415; 80053; 80061; 82043; 82570; 82607; 82728; 83036; 83540; 83721; 84466; 85025

== ENCOUNTER 2021-05-21 07:11 | Outpatient (CLI) | payer MEDICARE, OTHER ==
[2021-05-21 13:15] LABS: BASOPHILS % (AUTO) 0.3 %; EOSINOPHILS # (AUTO) 0.2 10^3/uL (0.0-0.7); EOSINOPHILS % (AUTO) 3.3 %; HCT - HEMATOCRIT 38.6 % (42.0-52.0); HGB - HEMOGLOBIN 12.1 g/dL (14.0-18.0); LYMPHOCYTES # (AUTO) 1.1 10^3/uL (1.5-3.5); LYMPHOCYTES % (AUTO) 19.5 %; MEAN CORPUSCULAR HEMOGLOBIN 33.3 pg (27.0-31.0); MEAN CORPUSCULAR HGB CONC 31.3 g/dL (32.0-36.0); MEAN CORPUSCULAR VOLUME 106.3 fL (80.0-94.0); MEAN PLATELET VOLUME 11.7 fL (7.4-11.4); MONOCYTES # (AUTO) 0.6 10^3/uL (0.0-1.0); MONOCYTES % (AUTO) 10.6 %; NEUTROPHILS # (AUTO) 3.8 10^3/uL (1.5-6.6); NEUTROPHILS % (AUTO) 65.8 %; PLT - PLATELET COUNT 196 10^3/uL (130-450); RED BLOOD COUNT 3.63 10^6/uL (4.70-6.10); RED CELL DISTRIBUTION WIDTH 13.6 % (12.0-15.0); WHITE BLOOD COUNT 5.8 x10^3/uL (4.8-10.8)
[2021-05-21 13:54] LABS: FERRITIN 65.4 ng/mL (23.9-336.2)
[2021-05-21 13:56] LABS: ALBUMIN 3.9 g/dL (3.2-5.5); ALBUMIN/GLOBULIN RATIO 1.4 (1.0-2.2); BILIRUBIN,TOTAL 0.6 mg/dL (0.2-1.0); CALCIUM 8.8 mg/dL (8.5-10.3); CREATININE 1.7 mg/dL (0.6-1.2); POTASSIUM 3.7 mmol/L (3.5-5.0); TOTAL PROTEIN 6.7 g/dL (6.7-8.2)
[2021-05-21 14:07] LABS: CREATININE,URINE 81.5 mg/dL; MICROALBUM/CREATININE RATIO,UR 42.9 ug/mg (<30.0); MICROALBUMIN,URINE 3.5 mg/dL (0-300.0)
[2021-05-21 20:46] LABS: ESTIMATED AVERAGE GLUCOSE 157 mg/dL (70-100); HEMOGLOBIN A1c% 7.1 % (4.27-6.07)
== END 2021-05-21 07:12 | disposition home or self-care (01) ==
LOC: LAB.N 07:11
PROVIDERS: ATTEND Family Medicine
DX: I12.9 Hypertensive chronic kidney disease with stage 1 through stage 4 chronic kidney disease, or unspecified chronic kidney disease (principal); E11.22 Type 2 diabetes mellitus with diabetic chronic kidney disease; N18.9 Chronic kidney disease, unspecified; D63.1 Anemia in chronic kidney disease; E11.319 Type 2 diabetes mellitus with unspecified diabetic retinopathy without macular edema
CPT/HCPCS: 36415; 80053; 82043; 82570; 82607; 82728; 83036; 85025

== ENCOUNTER 2021-07-30 01:37 | Outpatient (CLI) | payer MEDICARE, OTHER | END 2021-07-30 01:38 | disposition critical access hospital (66) | LOC: EMS 01:37 | DX: S01.81XA Laceration without foreign body of other part of head, initial encounter (principal); W06.XXXA Fall from bed, initial encounter; Y92.092 Bedroom in other non-institutional residence as the place of occurrence of the external cause | CPT/HCPCS: A0425; A0429 ==

== ENCOUNTER 2021-07-30 01:54 | Emergency (ER) | payer MEDICARE, OTHER ==
--- NOTE | 2021-07-30 02:19 | ED Physician Documentation ---
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 He denies LOC, denies DIOR, and denies any pain. Review of Systems Eyes: denies: Decreased vision Cardiac: denies: Chest pain / pressure GI: denies: Abdominal Pain Skin: reports: Laceration (s) Musculoskeletal: reports: Reviewed and negative Neurologic: reports: Head injury. denies: Generalized weakness, Focal weakness, Numbness, Confused, Altered mental status, Headache, LOC PD PAST MEDICAL HISTORY - Past Medical History Past Medical History: Yes Cardiovascular: Hypertension, Coronary artery disease, Murmur Respiratory: None Endocrine/Autoimmune: Type 2 diabetes GI: None : None HEENT: None Psych: None Musculoskeletal: None - Past Surgical History Past Surgical History: Yes Ortho: Arthroscopic surgery Cardiovascular: CABG - Present Medications Home Medications: Ambulatory Orders Medication Instructions Recorded Confirmed Finasteride 5 mg ORAL DAILY 05/07/15 01/26/21 Tamsulosin [Flomax] 0.4 mg ORAL DAILY 05/07/15 01/26/21 metFORMIN [Glucophage] 500 mg PO QDBREAKFAST 05/07/15 01/26/21 Atorvastatin [Lipitor] 40 mg PO QPM 08/15/17 01/26/21 Fenofibrate 145 mg PO DAILY 08/15/17 01/26/21 Gabapentin 300 mg PO DAILY 08/15/17 01/26/21 Losartan Potassium 100 mg PO DAILY 08/15/17 01/26/21 amLODIPine [Norvasc] 10 mg PO DAILY 08/15/17 01/26/21 Insulin Glargine [Lantus Solostar] 15 units SUBQ QPM 08/16/17 01/26/21 Metformin HCl 1,000 mg PO QDDINNER 08/16/17 01/26/21 Metoprolol Tartrate [Lopressor] 50 mg PO BID 08/16/17 01/26/21 Aspirin Chewable [[place] 1 tab DAILY 01/26/21 01/26/21 Aspirin] Omeprazole Magnesium 1 cap DAILY 01/26/21 01/26/21 Furosemide [Lasix] 20 mg PO DAILY 5 Days #5 tablet 01/28/21 - Allergies Allergies/Adverse Reactions: Allergies Allergy/AdvReac Type Severity Reaction Status Date / Time lisinopril Allergy Unknown Verified 07/30/21 02:01 - Social History Does the pt smoke?: No Smoking Status: Never smoker Does the pt drink ETOH?: No Does the pt have substance abuse?: No - Immunizations Immunizations are current?: Yes - POLST Patient has POLST: Yes POLST Status: DNR PD ED PE NORMAL - Vitals Vital signs reviewed: Yes - General General: Alert and oriented X 3, No acute distress, Well developed/nourished - HEENT HEENT: PERRL, EOMI - Neck Neck: No bony TTP - Cardiac Cardiac: RRR - Respiratory Respiratory: No respiratory distress, Clear bilaterally - Back Back: No spinal TTP - Extremities Extremities: No tenderness to palpate, Normal ROM s pain, Other (bilateral hips, elbows are without bony tenderness and ROM is intact. abrasion noted over right olecranon, skin tears over posterior aspect left elbow. no bony tenderness) - Neuro Neuro: Alert and oriented X 3, educational assistant 2-12 intact, No motor deficit, No sensory deficit, Normal speech Eye Opening: Spontaneous Motor: Obeys Commands Verbal: Oriented GCS Score: 15 PD ED PE EXPANDED - HEENT HEENT Visual: 1 - laceration (1.5 cm length laceration without bony tenderness) Results - Vitals Vitals: Oxygen O2 Source Nasal cannula Procedures - Laceration (location) Face Length in cm: 1.5 (left forehead) Wound type: Linear, Into subcut fat, Clean Anesthesia: Lidocaine 1% Wound preparation: Chlorhexadine, Irrigated copiously NS, Wound explored Skin layer closure: Nylon, Interrupted, Running, Size #-0 - enter number (4-0), Sutures - enter # (one running suture with four throws and one single interrupted suture) Other: Patient tolerated well, No complications, Neurovascular intact, Dressing applied, Tetanus booster given (last dtap was 2013; however, I would consider this a tetanus-prone wound and thus tetanus booster is given) PD MEDICAL DECISION MAKING - ED course Complexity details: considered differential, d/w patient ED course: presents after falling out of bed tonight, has forehead laceration that is sutured. Has no pain c/o, is in NAD. No testing nor imaging performed at this time. Departure - Departure Disposition: 01 Home, Self Care Clinical Impression: Laceration, Multiple abrasions Condition: Good Instructions: ED Abrasion, ED Laceration Facial Sutr Tape Comments: Follow up with your primary care provider in one week for removal of the stitches. You have a "running stitch" with four loops and a single interrupted suture (this information is for the practitioner who removes the stitches). Discharge Date/Time: 07/30/21 04:33
[2021-07-30] MEDS: LIDOCAINE 1% 2 ML VIAL SUBQ STA (02:37)
[2021-07-30] MEDS: TETANUS/DIPHTHERIA/PERTUSSIS 0.5 ML SYRINGE IM ONE (02:38)
[2021-07-30] MEDS: BACITRACIN ZINC OINT 1 PACKET TOP STA (03:36)
[2021-07-30 04:03] VITALS: BP 108/58
== END 2021-07-30 04:33 | disposition home or self-care (01) ==
LOC: EDUNIT# → ED 01:54
DX: S01.01XA Laceration without foreign body of scalp, initial encounter (principal); W06.XXXA Fall from bed, initial encounter; I10 Essential (primary) hypertension; E11.9 Type 2 diabetes mellitus without complications; Z79.4 Long term (current) use of insulin; Z23 Encounter for immunization; Z71.85 Encounter for immunization safety counseling
CPT/HCPCS: 12011; 90471; 99283

== ENCOUNTER 2021-07-30 04:34 | Outpatient (CLI) | payer MEDICARE, OTHER | END 2021-07-30 04:35 | disposition home or self-care (01) | LOC: EMS 04:34 | PROVIDERS: ATTEND Emergency Medicine | DX: S01.81XA Laceration without foreign body of other part of head, initial encounter (principal); W06.XXXA Fall from bed, initial encounter; I50.9 Heart failure, unspecified; Z99.81 Dependence on supplemental oxygen | CPT/HCPCS: A0425; A0428 ==

== ENCOUNTER 2021-08-27 07:14 | Outpatient (CLI) | payer MEDICARE, OTHER ==
[2021-08-27 12:24] LABS: ALBUMIN 3.8 g/dL (3.2-5.5); ALBUMIN/GLOBULIN RATIO 1.3 (1.0-2.2); BILIRUBIN,TOTAL 0.9 mg/dL (0.2-1.0); CALCIUM 8.8 mg/dL (8.5-10.3); CREATININE 1.8 mg/dL (0.6-1.2); TOTAL PROTEIN 6.7 g/dL (6.7-8.2)
[2021-08-27 14:52] LABS: ESTIMATED AVERAGE GLUCOSE 154 mg/dL (70-100)
== END 2021-08-27 07:15 | disposition home or self-care (01) ==
LOC: LAB.N 07:14
PROVIDERS: ATTEND Family Medicine
DX: E11.319 Type 2 diabetes mellitus with unspecified diabetic retinopathy without macular edema (principal)
CPT/HCPCS: 36415; 80053; 83036

== ENCOUNTER 2021-09-12 14:40 | Outpatient (CLI) | payer MEDICARE, OTHER ==
--- NOTE | 2021-09-12 16:01 | XRAY Report ---
PROCEDURE: Chest 2 View X-Ray INDICATIONS: CHF, NONRHEUMATIC AORTIC VALVE INSUFFICIENCY TECHNIQUE: 2 view(s) of the chest. COMPARISON: None. FINDINGS: Surgical changes and devices: Status post median sternotomy. Lungs and pleura: No pleural effusions or pneumothorax. Lungs are clear. Mediastinum: Mediastinal contours are normal. Heart size is normal. Bones and chest wall: No suspicious bony abnormalities. Soft tissues appear unremarkable. IMPRESSION: No acute cardiopulmonary abnormality. Reviewed by: Devon Damon on 09/12/2021 4:00 PM PDT Approved by: Devon Damon on 09/12/2021 4:00 PM PDT Station ID: [id number]
== END 2021-09-12 23:59 | disposition home or self-care (01) ==
LOC: DI.N 14:40
PROVIDERS: ATTEND Nurse Practitioner
DX: I35.1 Nonrheumatic aortic (valve) insufficiency (principal); I50.32 Chronic diastolic (congestive) heart failure

== ENCOUNTER 2021-09-24 14:24 | Outpatient (CLI) | payer MEDICARE, OTHER ==
[2021-09-24 18:49] LABS: CALCIUM 9.1 mg/dL (8.5-10.3); CREATININE 1.8 mg/dL (0.6-1.2); POTASSIUM 4.4 mmol/L (3.5-5.0)
== END 2021-09-24 14:25 | disposition home or self-care (01) ==
LOC: LAB.N 14:24
PROVIDERS: ATTEND Nurse Practitioner
DX: I50.32 Chronic diastolic (congestive) heart failure (principal)
CPT/HCPCS: 36415; 80048

== ENCOUNTER 2021-10-22 07:47 | Emergency (ER) | payer MEDICARE, OTHER ==
--- NOTE | 2021-10-22 08:06 | ED Physician Documentation ---
PD HPI DYSPNEA - Stated complaint Stated Complaint: SOA - Chief complaint Chief Complaint: Resp - History obtained from History obtained from: Patient - History of Present Illness Timing - onset: How many weeks ago (3) Timing - onset during: Light activity, Exertion. No: Sleep, Rest - Additional information Additional information: 81yoM with PMH CKD, CHF, COPD on chronic 2-3L O2, CAD s/p CABG x3 presents from home by private vehicle for 3 weeks of dyspnea on exertion. No dyspnea at rest or laying flat. Hasn't noticed leg swelling. Denies salt increase, states he hasn't been watching his water intake. No recent changes to medications. Denies chest pain, syncope, abdominal pain, decreased urination. Review of Systems Ten Systems: 10 systems reviewed and negative Constitutional: denies: Fever, Chills, Myalgias, Fatigue, Weight Loss, Sweats, Reviewed and negative, Other Eyes: denies: Loss of vision, Decreased vision, Photophobia, Discharge, Irritation, Reviewed and negative, Other Ears: denies: Loss of hearing, Ear pain, Drainage/discharge, Tinnitus/ringing, Foreign body, Reviewed and negative, Other Nose: denies: Rhinorrhea / runny nose, Congestion, Epistaxis, Sinus pressure / pain, Foreign Body, Reviewed and negative, Other Throat: denies: Dental pain / toothache, Oral lesions / sores, Sore throat, Swollen tonsils, Swallowed foreign body, Reviewed and negative, Other Cardiac: denies: Chest pain / pressure, Palpitations, Pedal edema, Calf pain Respiratory: reports: Dyspnea (on ecertion) GI: denies: Abdominal Pain, Abdominal Swelling, Nausea, Vomiting, Constipation, Diarrhea, Hematemesis, Bloody / black stool, Reviewed and negative, Other : denies: Dysuria, Frequency, Hesitancy, Unable to Void, Incontinent, Hematuria, Discharge, LMP, Vaginal bleeding, Irregular menses, Missed period, Now EGA, Control, Hysterectomy, Testicular pain, Testicular mass, Simmons Problem, Reviewed and negative, Other Skin: denies: Rash, Lesions, Abrasion (s), Laceration (s), Bite / sting, Reviewed and negative, Other Musculoskeletal: denies: Neck pain, Back pain, Extremity pain, Joint pain, Extremity swelling, Joint swelling, Pain with weight bearing, Reviewed and negative, Other PD PAST MEDICAL HISTORY - Past Medical History Cardiovascular: Coronary artery disease, Hypertension, Murmur Respiratory: None Endocrine/Autoimmune: Type 2 diabetes GI: None : None HEENT: None Psych: None Musculoskeletal: None - Past Surgical History Past Surgical History: Yes Ortho: Arthroscopic surgery Cardiovascular: CABG - Present Medications Home Medications: Ambulatory Orders Medication Instructions Recorded Confirmed Finasteride 5 mg ORAL DAILY 05/07/15 10/22/21 Tamsulosin [Flomax] 0.4 mg ORAL DAILY 05/07/15 10/22/21 Atorvastatin [Lipitor] 40 mg PO QPM 08/15/17 10/22/21 Fenofibrate 145 mg PO DAILY 08/15/17 10/22/21 Gabapentin 300 mg PO DAILY 08/15/17 10/22/21 Losartan Potassium 100 mg PO DAILY 08/15/17 10/22/21 Insulin Glargine [Lantus Solostar] 25 units SUBQ QPM 08/16/17 10/22/21 Metoprolol Tartrate [Lopressor] 50 mg PO BID 08/16/17 10/22/21 Aspirin Chewable [[place] 81 tab ORAL DAILY 01/26/21 10/22/21 Aspirin] Omeprazole Magnesium 1 cap DAILY 01/26/21 10/22/21 Furosemide [Lasix] 20 mg PO DAILY 5 Days #5 tablet 01/28/21 10/22/21 - Allergies Allergies/Adverse Reactions: Allergies Allergy/AdvReac Type Severity Reaction Status Date / Time lisinopril Allergy Unknown Verified 10/22/21 07:52 - Social History Does the pt smoke?: No Smoking Status: Never smoker Does the pt drink ETOH?: No Does the pt have substance abuse?: No - Immunizations Immunizations are current?: Yes - POLST Patient has POLST: Yes POLST Status: DNR PD ED PE NORMAL - General General: Alert and oriented X 3, No acute distress, Well developed/nourished, Other - HEENT HEENT: Atraumatic, PERRL, EOMI, Ears normal, Moist mucous membranes, Pharynx benign, Dentition benign, Other - Neck Neck: Supple, no meningeal sign, No bony TTP, No adenopathy, Thyroid normal, No JVD, No bruit, C-Spine cleared by NEXUS criteria, Other - Cardiac Cardiac: RRR, No gallop, Strong equal pulses, Other (bradycardia) - Respiratory Respiratory: No respiratory distress, Other (inspiratory crackles bilateral bases) - Abdomen Abdomen: Soft, Non tender, Non distended - Male Male : Deferred - Derm Derm: Normal color, Warm and dry, No rash, Other - Extremities Extremities: No deformity, No tenderness to palpate, Normal ROM s pain, No calf tenderness / cord, Other (trace pitting edema to mid cline bilaterally) - Neuro Neuro: Alert and oriented X 3, criminal intelligence analyst 2-12 intact, No motor deficit, No sensory deficit, Normal speech, Other - Psych Psych: Normal mood, Normal affect, Other Results - Vitals Vitals: Vital Signs - 24 hr 10/22/21 10/22/21 10/22/21 07:52 08:36 09:11 Temperature 36.5 C Heart Rate 54 L 42 L 46 L Respiratory 20 16 14 Rate Blood Pressure 151/43 H 168/46 H 155/50 H O2 Saturation 93 100 100 10/22/21 10/22/21 10/22/21 09:34 10:09 10:56 Temperature Heart Rate 47 L 62 43 L Respiratory 16 24 17 Rate Blood Pressure 166/50 H 158/47 H 146/41 H O2 Saturation 96 92 98 10/22/21 10/22/21 11:09 12:13 Temperature Heart Rate 57 L 49 L Respiratory 16 13 Rate Blood Pressure 159/42 H 104/49 L O2 Saturation 94 97 Oxygen O2 Source Nasal cannula Oxygen Flow Rate 3 - Labs Labs: Laboratory Tests 10/22/21 10/22/21 10/22/21 08:08 08:11 08:11 WBC 7.6 RBC 3.34 L Hgb 10.9 L Hct 35.6 L MCV 106.6 H MCH 32.6 H MCHC 30.6 L RDW 14.0 Plt Count 168 MPV 11.0 Neut # (Auto) 6.0 Lymph # (Auto) 0.8 L [place] # (Auto) 0.7 Eos # (Auto) 0.1 Baso # (Auto) 0.0 Absolute Nucleated RBC 0.00 Nucleated RBC % 0.0 Sodium 140 Potassium 3.9 Chloride 107 Carbon Dioxide 24 Anion Gap 9.0 BUN 30 H Creatinine 2.0 H Estimated GFR (MDRD) 32 L Glucose 205 H Calcium 8.7 Magnesium 2.3 Iron Cancelled TIBC Cancelled % Saturation Cancelled Transferrin Cancelled Total Bilirubin 1.0 AST 21 ALT 18 Alkaline Phosphatase 36 L Troponin I High Sens B-Natriuretic Peptide Total Protein 6.7 Albumin 3.8 Globulin 2.9 Albumin/Globulin Ratio 1.3 Triglycerides Cancelled Cholesterol Cancelled LDL Cholesterol, Calc Cancelled VLDL Cholesterol Cancelled HDL Cholesterol Cancelled LDL/HDL Ratio Cancelled Cholesterol/HDL Ratio Cancelled 10/22/21 10/22/21 10/22/21 08:11 08:11 10:17 WBC RBC Hgb Hct MCV MCH MCHC RDW Plt Count MPV Neut # (Auto) Lymph # (Auto) [place] # (Auto) Eos # (Auto) Baso # (Auto) Absolute Nucleated RBC Nucleated RBC % Sodium Potassium Chloride Carbon Dioxide Anion Gap BUN Creatinine Estimated GFR (MDRD) Glucose Calcium Magnesium Iron TIBC % Saturation Transferrin Total Bilirubin AST ALT Alkaline Phosphatase Troponin I High Sens 23.4 H* 98.9 H* B-Natriuretic Peptide 2958 H Total Protein Albumin Globulin Albumin/Globulin Ratio Triglycerides Cholesterol LDL Cholesterol, Calc VLDL Cholesterol HDL Cholesterol LDL/HDL Ratio Cholesterol/HDL Ratio PD MEDICAL DECISION MAKING - ED course Complexity details: reviewed old records, reviewed results, re-evaluated patient, d/w patient, d/w family, d/w human performance consultant ED course: 81-year-old male with history of CHF and underlying COPD presenting only with dyspnea on exertion. Trace pitting edema bilateral lower extremities, saturating well on his normal nasal cannula. Chest x-ray with mild pulmonary edema, initial troponin 26, patient does have CKD and likely secondary to poor clearance. Patient denies any chest pain whatsoever, there are no ischemic findings on patient's EKG - no significant changes since 01/2021 Repeat troponin slightly more elevated, however patient is diuresing well, he states that he has had no chest pain whatsoever and he does not want to stay in the hospital. EKG unchanged from 2020. I was able to discuss the patient's case with his cardiology team including LENIN Danielle, who stated that the patient could be seen in clinic this week for further work-up. After diuresing for several hours the patient was able to ambulate without dyspnea, which he states he has not been able to do for several weeks. He states that he feels much better and prefers to follow-up as an outpatient and does not want to stay in the hospital. Patient was counseled to monitor his water intake, and to increase his water pill by an extra dose each day until he could see his cardiology team this week. Patient stated that he would call as soon as he got home to make his appointment. - Consults Consults: Consulted (name) (Tanvi PHELPS Cardiolgoy), Other (Will see patient this week in clinic. Stable for DC home if diuresing well) Departure - Departure Disposition: Home, Self Care Clinical Impression: Congestive heart failure Qualifiers: Heart failure type: diastolic Heart failure chronicity: acute on chronic Qualified Code(s): I50.33 - Acute on chronic diastolic (congestive) heart failure Instructions: Heart Failure Dc, ED CHF General Comments: MAKE SURE YOU FOLLOW UP WITH YOUR PROJECT CONSTRUCTION ASSISTANT MANAGER THIS WEEK! Discharge Date/Time: 10/22/21 12:51
[2021-10-22 08:16] LABS: BASOPHILS % (AUTO) 0.3 %; EOSINOPHILS # (AUTO) 0.1 10^3/uL (0.0-0.7); EOSINOPHILS % (AUTO) 1.1 %; HCT - HEMATOCRIT 35.6 % (42.0-52.0); HGB - HEMOGLOBIN 10.9 g/dL (14.0-18.0); LYMPHOCYTES # (AUTO) 0.8 10^3/uL (1.5-3.5); LYMPHOCYTES % (AUTO) 10.2 %; MEAN CORPUSCULAR HEMOGLOBIN 32.6 pg (27.0-31.0); MEAN CORPUSCULAR HGB CONC 30.6 g/dL (32.0-36.0); MEAN CORPUSCULAR VOLUME 106.6 fL (80.0-94.0); MONOCYTES # (AUTO) 0.7 10^3/uL (0.0-1.0); MONOCYTES % (AUTO) 8.6 %; NEUTROPHILS % (AUTO) 79.3 %; PLT - PLATELET COUNT 168 10^3/uL (130-450); RED BLOOD COUNT 3.34 10^6/uL (4.70-6.10); WHITE BLOOD COUNT 7.6 x10^3/uL (4.8-10.8)
[2021-10-22 08:32] LABS: ALBUMIN 3.8 g/dL (3.2-5.5); ALBUMIN/GLOBULIN RATIO 1.3 (1.0-2.2); CALCIUM 8.7 mg/dL (8.5-10.3); MAGNESIUM 2.3 mg/dL (1.7-2.8); POTASSIUM 3.9 mmol/L (3.5-5.0); TOTAL PROTEIN 6.7 g/dL (6.7-8.2)
[2021-10-22] MEDS ORDERED: FUROSEMIDE 40 MG/4 ML VIAL IVP STA (08:46)
--- NOTE | 2021-10-22 08:46 | XRAY Report ---
PROCEDURE: Chest 1 View X-Ray INDICATIONS: Exertional dyspnea TECHNIQUE: One view of the chest was acquired. COMPARISON: 09/12/2021 FINDINGS: Surgical changes and devices: None. Lungs and pleura: No pleural effusions or pneumothorax. Cephalization of pulmonary vessels. Mildly i ncreased central/perihilar interstitial markings. Mediastinum: Mediastinal contours appear normal. Heart size is at the upper limits of normal. Bones and chest wall: No suspicious bony lesions. Overlying soft tissues appear unremarkable. IMPRESSION: Cephalization of pulmonary vessels with increased interstitial markings in the central/perihilar lung s, suggestive of mild to moderate cardiogenic pulmonary edema. Reviewed by: Azam Elder MD on 10/22/2021 8:44 AM PDT Approved by: Azam Elder MD on 10/22/2021 8:44 AM PDT Station ID: [id number]
[2021-10-22 12:14] VITALS: BP 104/49
== END 2021-10-22 12:51 | disposition home or self-care (01) ==
LOC: ED 07:47
DX: I11.0 Hypertensive heart disease with heart failure (principal); I50.33 Acute on chronic diastolic (congestive) heart failure; E11.22 Type 2 diabetes mellitus with diabetic chronic kidney disease; Z79.4 Long term (current) use of insulin; Z95.1 Presence of aortocoronary bypass graft; N18.32 Chronic kidney disease, stage 3b; E11.39 Type 2 diabetes mellitus with other diabetic ophthalmic complication; D64.9 Anemia, unspecified
CPT/HCPCS: 36415; 80053; 80061; 82607; 82728; 83036; 83540; 83721; 83735; 83880; 84466; 84484; 85025; 93005; 96374; 99283

== ENCOUNTER 2021-10-22 08:00 | Outpatient (CLI) | payer MEDICARE, OTHER ==
[2021-10-22 12:03] LABS: % IRON SATURATION 14 % (20-50); CHOL/HDL RATIO 4.8 (<5.0); CHOLESTEROL 106 mg/dL; HDL CHOLESTEROL 22 mg/dL; IRON 72 ug/dL (45-182); LDL CHOLESTEROL,CALCULATED 57 mg/dL; LDL/HDL RATIO 2.6 (<3.6); TOTAL IRON BINDING CAPACITY 532 ug/dL (250-450); TRANSFERRIN 380 mg/dL (180-329); TRIGLYCERIDES 134 mg/dL; VLDL CHOLESTEROL 27 mg/dL
[2021-10-22 12:13] LABS: FERRITIN 50.5 ng/mL (23.9-336.2)
[2021-10-22 14:32] LABS: ESTIMATED AVERAGE GLUCOSE 200 mg/dL (70-100); HEMOGLOBIN A1c% 8.6 % (4.27-6.07)
== END 2021-10-22 23:59 | disposition home or self-care (01) ==
LOC: LAB 08:00
PROVIDERS: ATTEND Nurse Practitioner Family
DX: E11.22 Type 2 diabetes mellitus with diabetic chronic kidney disease (principal); N18.32 Chronic kidney disease, stage 3b; E11.319 Type 2 diabetes mellitus with unspecified diabetic retinopathy without macular edema; D64.9 Anemia, unspecified
CPT/HCPCS: 36415; 80061; 82607; 82728; 83036; 83540; 83721; 84466

== ENCOUNTER 2021-10-24 10:16 | Outpatient (CLI) | payer MEDICARE, OTHER | END 2021-10-24 10:17 | disposition short-term general hospital (02) | LOC: EMS 10:16 | DX: R06.02 Shortness of breath (principal) | CPT/HCPCS: A0425; A0427 ==

== ENCOUNTER 2021-11-06 07:07 | Outpatient (CLI) | payer MEDICARE, OTHER ==
[2021-11-06 13:02] LABS: ALBUMIN 4.1 g/dL (3.2-5.5); ALBUMIN/GLOBULIN RATIO 1.2 (1.0-2.2); BILIRUBIN,TOTAL 0.7 mg/dL (0.2-1.0); CALCIUM 9.2 mg/dL (8.5-10.3); POTASSIUM 4.4 mmol/L (3.5-5.0); TOTAL PROTEIN 7.5 g/dL (6.7-8.2)
== END 2021-11-06 07:08 | disposition home or self-care (01) ==
LOC: LAB.N 07:07
PROVIDERS: ATTEND Nurse Practitioner Family
DX: I12.9 Hypertensive chronic kidney disease with stage 1 through stage 4 chronic kidney disease, or unspecified chronic kidney disease (principal)
CPT/HCPCS: 36415; 80053

== ENCOUNTER 2022-01-14 16:56 | Outpatient (CLI) | payer MEDICARE, OTHER | END 2022-01-14 16:57 | disposition E | LOC: EMS 16:56 ==